=== PATIENT | female | born 1955 | race Caucasian/White ===

== ENCOUNTER → 2017-07-13 | Outpatient (CLI) | payer MEDICARE, OTHER ==
[2014-06-08 17:30] VITALS: BP 128/72
[~2017-07-13] MED LIST: ATEN50TA PO; BUDE10.2 IH; CYCL10TA2 PO; DIAZEPAM10 MG PO; HYDR-2758 PO; HYDR25TA9 PO; IBUP-1007 PO; LEVO100T5 PO; METH10TA2 PO; OMEP20CA9 PO; POTA20TA82 PO; PREG100C PO; SOLI5TAB2 PO; VENL225T PO; VENTOLIN HFA18 GM INH
--- NOTE | 2017-07-14 10:21 | RAD ---
Thyroid ultrasound 07/13/2017 Clinical history: Abnormal TSH. Technique: A real-time ultrasound examination of the thyroid gland was performed. Multiple images were obtained. Findings: The thyroid gland is mildly enlarged. It measures 4.4 x 1.9 x 1.5 cm in longitudinal, transverse, and AP dimensions. The left lobe of the thyroid gland measures 4.7 x 1.5 x 1.6 cm in size. The thyroid gland is slightly heterogeneous. The isthmus measures 2 mm in thickness. A rounded area calcification is seen within the inferior aspect of the left lobe of the thyroid gland. This measures 5 mm in size. No significant solid mass is seen. Impression: Mild thyromegaly. The thyroid gland is heterogeneous. No significant solid mass is noted.
== END | disposition home or self-care (01) ==
LOC: US 16:24
PROVIDERS: ATTEND Family Medicine
DX: E01.0 Iodine-deficiency related diffuse (endemic) goiter (principal); R94.6 Abnormal results of thyroid function studies
CPT/HCPCS: 76536

== ENCOUNTER 2018-06-08 23:19 | Emergency (ER) | payer MEDICARE, OTHER ==
[~2018-06-08] VITALS: Ht 160 cm; Wt 74.8 kg
[2018-06-08 23:45] VITALS: BP 132/75
--- NOTE | 2018-06-09 00:19 | PHYS DOC ---
Past Medical History Past Medical History: Anxiety, Arrhythmia, Depression, High Cholesterol, Hypertension, Hypothyroid Past Surgical History: Cholecystectomy, Hysterectomy, Tubal ligation, Other Additional Past Surgical Histo: BREAST BIOPSY X2, RIGHT ROTATOR CUFF REPAIR Alcohol Use: None Drug Use: None Adult General Chief Complaint Chief Complaint: PAIN CONTROL HPI HPI Patient is a 62-year-old female who presents to the emergency department complaining of generalized pain. She states that she ran out of her methadone approximately one week ago. She says that she has an appointment with a pain doctor on June 18. Patient states that her pain is all over her body and that it is 10/10 in severity. She states that she took 2 Valium and 2 800mg ibuprofen 's within 4-5 hours to help her with the pain to help her sleep and this did not help her symptoms. Review of Systems Review of Systems Constitutional: Endorses fever. Denies chills [] Eyes: Denies change in visual acuity, redness, or eye pain [] HENT: Denies nasal congestion or sore throat [] Respiratory: Denies cough or shortness of breath [] Cardiovascular: Denies chest pain. Endorses palpitations due to her anxiety[] GI: Denies abdominal pain, nausea, vomiting, bloody stools or diarrhea [] : Denies dysuria or hematuria [] Musculoskeletal: Endorses back pain, bilateral chronic shoulder pain [] Neurologic: Endorses headache. Denies focal weakness or sensory changes [] Complete systems were reviewed and found to be within normal limits, except as documented in this note. Current Medications Current Medications Current Medications Medications (Trade) Dose Ordered Sig/[facility] Start Time Stop Time Status Last Admin Dose Admin Dexamethasone (Decadron) 10 mg 1X ONCE 06/09/18 01:30 06/09/18 01:31 Ketorolac Tromethamine (Toradol Im) 30 mg 1X ONCE 06/09/18 01:30 06/09/18 01:31 Allergies Allergies Allergies Coded Allergies Type Severity Reaction Last Updated Verified Sulfa (Sulfonamide Antibiotics) Allergy Intermediate Itching 06/08/14 No venom-honey bee Allergy Intermediate SWELLING 06/08/14 Yes Uncoded Allergies Type Severity Reaction Last Updated Verified ANT VENOM Allergy Intermediate SWELLING 06/08/14 Physical Exam Physical Exam Constitutional: Well developed, well nourished, no acute distress, non-toxic appearance. [] HENT: Normocephalic, atraumatic, bilateral external ears normal, oropharynx moist, no oral exudates, nose normal. [] Eyes: PERRL, EOMI. [] Neck: Normal range of motion, supple, no stridor. [] Cardiovascular:Heart rate regular rhythm, no murmur [] Lungs & Thorax: Bilateral breath sounds clear to auscultation [] Abdomen: Bowel sounds normal, soft, no masses, no pulsatile masses. [] Skin: Warm, dry, no erythema, no rash. [] Neurologic: Alert and oriented X 3, normal motor function, normal sensory function, no focal deficits noted. [] Current Patient Data Vital Signs Vital Signs Date Time Temp Pulse Resp B/P (MAP) Pulse Ox O2 Delivery O2 Flow Rate FiO2 06/08/18 23:45 98.6 90 16 96 Room Air 98.6 EKG EKG [] Radiology/Procedures Radiology/Procedures [] Course & Med Decision Making Course & Med Decision Making Pertinent Labs and Imaging studies reviewed. (See chart for details) Patient is a 62-year-old female who presents to the emergency department complaining of diffuse pain after having ran out of her methadone prescription. Toradol and Decadron were offered to the patient to help alleviate her symptoms. Patient stable for discharge with outpatient follow-up with PCP. Discussed findings and plan with patient who acknowledges understanding and agreement. [] Dragon Disclaimer Dragon Disclaimer This electronic medical record was generated, in whole or in part, using a voice recognition dictation system. Departure Departure Impression: Primary Impression: Chronic pain Disposition: HOME, SELF-CARE Condition: STABLE Referrals: UNKNOWN PCP NAME (PCP) Patient Instructions: Chronic Pain, Chronic Pain Management-Brief Scripts Orphenadrine Citrate (ORPHENADRINE CITRATE) 100 Mg Tablet.er 1 TAB PO BID PRN for MUSCLE SPASMS, #20 TAB 0 Refills Prov: JEWELS LEE DO 06/09/18 Prednisone (PREDNISONE) 20 Mg Tablet 2 TAB PO DAILY, #8 TAB Start on Sunday06/10/18 Prov: JEWELS LEE DO 06/09/18 Problem Qualifiers Primary Impression: Chronic pain Chronic pain type: chronic pain syndrome Qualified Codes: G89.4 - Chronic pain syndrome JEWELS LEE DO Jun 09, 2018 00:19
[2018-06-09] MEDS ORDERED: ORPH100T PO (00:57)
[2018-06-09] MEDS ORDERED: PRED20TA PO (00:57)
[2018-06-09] MEDS ORDERED: KETOROLAC 60 MG/2 ML INJ. IM ONE (01:30)
[2018-06-09] MEDS ORDERED: DEXAMETHASONE 4 MG TABLET PO ONE (01:30)
[2018-06-09] MEDS ORDERED: BUTA1TAB23 PO (20:13)
[2018-06-09] MEDS ORDERED: ONDA4TAB12 PO (20:13)
== END 2018-06-09 01:12 | disposition home or self-care (01) ==
LOC: ER 23:19
DX: G89.4 Chronic pain syndrome (principal); M79.1 Myalgia; I10 Essential (primary) hypertension; E78.00 Pure hypercholesterolemia, unspecified; E03.9 Hypothyroidism, unspecified; Z88.2 Allergy status to sulfonamides; Z91.030 Bee allergy status
CPT/HCPCS: 96372; 99283; J1885; J8540

== ENCOUNTER 2018-06-09 19:43 | Emergency (ER) | payer MEDICARE, OTHER ==
[~2018-06-09] VITALS: Ht 160 cm; Wt 74.4 kg
[~2018-06-09 19:43] MED LIST changes: +ORPH100T PO; +PRED20TA PO
[2018-06-09 19:50] VITALS: BP 158/81
[2018-06-09] MEDS ORDERED: ONDA4TAB12 PO (20:13)
[2018-06-09] MEDS ORDERED: BUTA1TAB23 PO (20:13)
--- NOTE | 2018-06-09 20:13 | PHYS DOC ---
Past Medical History Past Medical History: Anxiety, Arrhythmia, Depression, Fibromyalgia, High Cholesterol, Hypertension, Hypothyroid Additional Past Medical Histor: Chronic Back Pain Past Surgical History: Cholecystectomy, Hysterectomy, Tonsillectomy, Tubal ligation, Other Additional Past Surgical Histo: BREAST BIOPSY X2, RIGHT ROTATOR CUFF REPAIR, BACK SURGERY Alcohol Use: Occasionally Drug Use: None Adult General Chief Complaint Chief Complaint: PAIN CONTROL HPI HPI Patient is a 62 year old [f__sex] who presents with [] Review of Systems Review of Systems Constitutional: Denies fever or chills [] Eyes: Denies change in visual acuity, redness, or eye pain [] HENT: Denies nasal congestion or sore throat [] Respiratory: Denies cough or shortness of breath [] Cardiovascular: No additional information not addressed in HPI [] GI: Denies abdominal pain, nausea, vomiting, bloody stools or diarrhea [] : Denies dysuria or hematuria [] Musculoskeletal: Denies back pain or joint pain [] Integument: Denies rash or skin lesions [] Neurologic: Denies headache, focal weakness or sensory changes [] Endocrine: Denies polyuria or polydipsia [] All other systems were reviewed and found to be within normal limits, except as documented in this note. Allergies Allergies Allergies Coded Allergies Type Severity Reaction Last Updated Verified Sulfa (Sulfonamide Antibiotics) Allergy Intermediate Itching 06/08/14 No venom-honey bee Allergy Intermediate SWELLING 06/08/14 Yes Uncoded Allergies Type Severity Reaction Last Updated Verified ANT VENOM Allergy Intermediate SWELLING 06/08/14 Physical Exam Physical Exam Constitutional: Well developed, well nourished, no acute distress, non-toxic appearance. [] HENT: Normocephalic, atraumatic, bilateral external ears normal, oropharynx moist, no oral exudates, nose normal. [] Eyes: PERRLA, EOMI, conjunctiva normal, no discharge. [] Neck: Normal range of motion, no tenderness, supple, no stridor. [] Cardiovascular:Heart rate regular rhythm, no murmur [] Lungs & Thorax: Bilateral breath sounds clear to auscultation [] Abdomen: Bowel sounds normal, soft, no tenderness, no masses, no pulsatile masses. [] Skin: Warm, dry, no erythema, no rash. [] Back: No tenderness, no CVA tenderness. [] Extremities: No tenderness, no cyanosis, no clubbing, ROM intact, no edema. [] Neurologic: Alert and oriented X 3, normal motor function, normal sensory function, no focal deficits noted. [] Psychologic: Affect normal, judgement normal, mood normal. [] Current Patient Data Vital Signs Vital Signs Date Time Temp Pulse Resp B/P (MAP) Pulse Ox O2 Delivery O2 Flow Rate FiO2 06/09/18 19:50 98.9 97 18 158/81 (106) 97 Room Air 98.9 EKG EKG [] Radiology/Procedures Radiology/Procedures [] Course & Med Decision Making Course & Med Decision Making Pertinent Labs and Imaging studies reviewed. (See chart for details) [] Dragon Disclaimer Dragon Disclaimer This electronic medical record was generated, in whole or in part, using a voice recognition dictation system. Departure Departure Impression: Primary Impression: Chronic pain Additional Impression: Headache Disposition: 01 HOME, SELF-CARE Condition: STABLE Referrals: UNKNOWN PCP NAME (PCP) Patient Instructions: Chronic Pain Management, Headache, FAQs Scripts Ondansetron (ONDANSETRON ODT) 4 Mg Tab.rapdis 1 TAB PO PRN Q6-8HRS PRN for HEADACHE, #16 TAB Prov: JEWELS LEE DO 06/09/18 Butalb/Acetaminophen/Caffeine ([id number] 50-325-40) 1 Each Tablet 1 EACH PO Q6HRS PRN for HEADACHE, #14 TAB Prov: JEWELS LEE DO 06/09/18 Problem Qualifiers Primary Impression: Chronic pain Chronic pain type: chronic pain syndrome Qualified Codes: G89.4 - Chronic pain syndrome Additional Impression: Headache Headache type: unspecified Headache chronicity pattern: unspecified pattern Intractability: intractable Qualified Codes: R51 - Headache JEWELS LEE DO Jun 09, 2018 20:13
[2018-06-09] MEDS ORDERED: BUTALB/APAP/CAFEIN 50/325/40MG TABLET. PO ONE (20:15)
[2018-06-09] MEDS ORDERED: ONDANSETRON ODT 4 MG TAB.RAPDIS. PO ONE (20:15)
[2018-06-09] MEDS ORDERED: ORPHENADRINE CITRATE 60 MG/2 ML VIAL. IM ONE (20:15)
== END 2018-06-09 20:53 | disposition home or self-care (01) ==
LOC: ER 19:43
DX: G89.29 Other chronic pain (principal); R51 Headache; E78.00 Pure hypercholesterolemia, unspecified; I10 Essential (primary) hypertension; E03.9 Hypothyroidism, unspecified; F41.9 Anxiety disorder, unspecified; F32.9 Major depressive disorder, single episode, unspecified; Z88.2 Allergy status to sulfonamides; Z91.030 Bee allergy status
CPT/HCPCS: 96372; 99283; J2360; Q0162

== ENCOUNTER 2018-06-11 22:08 | Emergency (ER) | payer MEDICARE, OTHER ==
[~2018-06-11] VITALS: Ht 160 cm; Wt 71.2 kg
[~2018-06-11 22:08] MED LIST changes: +BUTA1TAB23 PO; +ONDA4TAB12 PO
[2018-06-11 22:22] VITALS: BP 142/77
[2018-06-11] MEDS ORDERED: DICL50TA4 PO (22:43)
[2018-06-11] MEDS ORDERED: CYCL10TA2 PO (22:43)
--- NOTE | 2018-06-11 22:43 | PHYS DOC ---
Past Medical History Past Medical History: No Pertinent History, Anxiety, Depression, High Cholesterol, Hypertension, Hypothyroid Additional Past Medical Histor: Chronic Back Pain Past Surgical History: No Surgical History, Cholecystectomy Additional Past Surgical Histo: BREAST BIOPSY X2, RIGHT ROTATOR CUFF REPAIR, BACK SURGERY Alcohol Use: Rarely Drug Use: None Adult General Chief Complaint Chief Complaint: MEDICATION REFILL HPI HPI Patient is a 62 year old female with history of hypertension, high cholesterol , anxiety, arthritis, who presents today complaining of chronic pain throughout her whole body that she has been following up with her own PCP. She states her own PCP stopped giving her methadone and requested her to follow-up with the pain clinic. She states she is planning to follow-up with the pain clinic but in the meantime she is not able to sleep and has continued to have pain. Patient denies any known injury. Review of Systems Review of Systems Constitutional: Denies fever or chills [] Musculoskeletal: Reports chronic generalized pain throughout her body Integument: Denies rash or skin lesions [] Neurologic: Denies headache, focal weakness or sensory changes [] All other systems were reviewed and found to be within normal limits, except as documented in this note. Allergies Allergies Allergies Coded Allergies Type Severity Reaction Last Updated Verified Sulfa (Sulfonamide Antibiotics) Allergy Intermediate Itching 06/08/14 No venom-honey bee Allergy Intermediate SWELLING 06/08/14 Yes Uncoded Allergies Type Severity Reaction Last Updated Verified ANT VENOM Allergy Intermediate SWELLING 06/08/14 Physical Exam Physical Exam Constitutional: Well developed, well nourished, no acute distress, non-toxic appearance. [] Skin: Warm, dry, no erythema, no rash. [] Back: No tenderness, no CVA tenderness. [] Extremities: No tenderness, no cyanosis, no clubbing, ROM intact, no edema. [] Neurologic: Alert and oriented X 3, normal motor function, normal sensory function, no focal deficits noted. [] Psychologic: Affect normal, judgement normal, mood normal. [] Current Patient Data Vital Signs Vital Signs Date Time Temp Pulse Resp B/P (MAP) Pulse Ox O2 Delivery O2 Flow Rate FiO2 06/11/18 22:22 98.5 79 16 142/77 (98) 97 Room Air 98.5 EKG EKG [] Radiology/Procedures Radiology/Procedures [] Course & Med Decision Making Course & Med Decision Making Pertinent Labs and Imaging studies reviewed. (See chart for details) This is a 62-year-old female patient presenting to the ED today complaining of chronic pain is requesting refill for methadone which she states her own primary care doctor has stopped giving her. She was referred to a pain clinic. Informed patient she has to follow-up with the pain clinic. I offered her 1 oxycodone and Valium in the ED. She was discharged with prescription for cyclobenzaprine and diclofenac. Dragon Disclaimer Dragon Disclaimer This electronic medical record was generated, in whole or in part, using a voice recognition dictation system. Departure Departure Impression: Primary Impression: Chronic pain Disposition: HOME, SELF-CARE Condition: STABLE Referrals: UNKNOWN PCP NAME (PCP) LEN TYSON MD Follow-up in one week Patient Instructions: Chronic Pain Additional Instructions: You were evaluated in the emergency room for chronic pain. Follow-up with the pain clinic or your own primary care doctor as soon as possible. Scripts Diclofenac Sodium (DICLOFENAC SODIUM) 50 Mg Tablet.dr 1 TAB PO BID, #20 TAB 0 Refills Prov: SILVIA CONTI APRN 06/11/18 Cyclobenzaprine Hcl (CYCLOBENZAPRINE HCL) 10 Mg Tablet 1 TAB PO TID, #30 TAB Prov: SILVIA CONTI APRN 06/11/18 Problem Qualifiers Primary Impression: Chronic pain Chronic pain type: other chronic pain Qualified Codes: G89.29 - Other chronic pain SILVIA CONTI APRN Jun 11, 2018 22:43
[2018-06-11] MEDS: diazePAM 5 MG TABLET PO ONE (22:56)
[2018-06-11] MEDS: oxyCODONE/APAP 5/325 1 TAB TABLET PO ONE (22:56)
== END 2018-06-11 23:05 | disposition home or self-care (01) ==
LOC: ER 22:08
DX: G89.29 Other chronic pain (principal); I10 Essential (primary) hypertension; E78.00 Pure hypercholesterolemia, unspecified; F41.9 Anxiety disorder, unspecified; M19.90 Unspecified osteoarthritis, unspecified site; F32.9 Major depressive disorder, single episode, unspecified; E03.9 Hypothyroidism, unspecified; Z90.49 Acquired absence of other specified parts of digestive tract; Z88.2 Allergy status to sulfonamides; Z91.030 Bee allergy status
CPT/HCPCS: 99283

== ENCOUNTER → 2018-07-29 | Outpatient (CLI) | payer MEDICARE, OTHER ==
[~2018-07-29] MED LIST changes: +ASPI-630 PO; +BUPIVACAINE MPF 0.25% 10 ML VIAL. ONE; +BUPIVACAINE MPF 0.25% 30 ML VIAL. ONE; +CHOL500016 PO; +DICL50TA4 PO; +EZET10TA18 PO; +FLUO20CA16 PO; +FLUT9.9S NS; +IBUP-1060 PO; +LEVO112T4 PO; +POLY119P3 PO; +SIMV20TA3 PO; +TIOT18CA IH; +VILA40TA PO; +[UNRECOGNIZED DRUG - CODE]; +flaxseed; +methylPREDNISolone ACETATE 40 MG/ML VIAL. ONE
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
== END | disposition home or self-care (01) ==
LOC: PNCL 13:08
PROVIDERS: ATTEND Anesthesiology
DX: M79.18 Myalgia, other site (principal); M54.5 Low back pain; I10 Essential (primary) hypertension; M19.90 Unspecified osteoarthritis, unspecified site; E78.5 Hyperlipidemia, unspecified; K21.9 Gastro-esophageal reflux disease without esophagitis; F32.9 Major depressive disorder, single episode, unspecified; F41.9 Anxiety disorder, unspecified; Z98.890 Other specified postprocedural states; Z90.49 Acquired absence of other specified parts of digestive tract; Z98.51 Tubal ligation status; Z79.82 Long term (current) use of aspirin; Z79.1 Long term (current) use of non-steroidal anti-inflammatories (NSAID); Z79.899 Other long term (current) drug therapy
CPT/HCPCS: 20553; J1030; J3490

== ENCOUNTER → 2018-08-01 | Outpatient (CLI) | payer MEDICARE, OTHER ==
[~2018-08-01] MED LIST changes: -BUPIVACAINE MPF 0.25% 10 ML VIAL. ONE; -BUPIVACAINE MPF 0.25% 30 ML VIAL. ONE; -methylPREDNISolone ACETATE 40 MG/ML VIAL. ONE
--- NOTE | 2018-08-01 17:25 | KCIC ---
MRI Lumbar Spine without contrast History: Lumbar radiculopathy, chronic spine pain, bilateral lower extremity pain Technique: Multiplanar, multi sequential noncontrast MR imaging was performed of the lumbar spine. Contrast: None Comparison: April 07, 2014 Findings: There is again transitional anatomy of the lumbar spine. Most inferior fully formed although somewhat rudimentary intervertebral disc space is considered L5-S1 for this report. There is negligible anterior spondylolisthesis at what is considered L5-S1. There is mild disc desiccation L2-3 through L4-5. Conus terminates at L1-L2. There is no significant marrow edema. There is mild levoscoliosis centered about L2-3. L3-L4: Spinal canal and neural foramina are adequate. There is minimal facet degenerative change. L4-L5: There is mild facet degenerative change. Neural foramina and spinal canal are adequate. L5-S1: There is [id number] facet degenerative change. Neural foramina and spinal canal are adequate. Impression: 1. There is again transitional anatomy of the lumbar spine, most inferior fully formed although somewhat rudimentary intervertebral disc space considered L5-S1 for this report. There is negligible anterior spondylolisthesis at what is considered L5-S1. There is no new significant lumbar spinal stenosis or neural foramina compromise. There is mild lumbar levoscoliosis. Electronically signed by: Harpal Torres MD (08/01/2018 5:22 PM) [id number]
== END | disposition home or self-care (01) ==
LOC: KCIC MRI 15:16
PROVIDERS: ATTEND Anesthesiology
DX: M51.16 Intervertebral disc disorders with radiculopathy, lumbar region (principal); G89.29 Other chronic pain; F41.9 Anxiety disorder, unspecified; F32.9 Major depressive disorder, single episode, unspecified; M19.90 Unspecified osteoarthritis, unspecified site; E03.9 Hypothyroidism, unspecified; E78.00 Pure hypercholesterolemia, unspecified; I10 Essential (primary) hypertension; K21.9 Gastro-esophageal reflux disease without esophagitis; E78.5 Hyperlipidemia, unspecified; Z79.82 Long term (current) use of aspirin; Z98.890 Other specified postprocedural states; Z98.51 Tubal ligation status; Z79.899 Other long term (current) drug therapy; Z90.49 Acquired absence of other specified parts of digestive tract; Z79.1 Long term (current) use of non-steroidal anti-inflammatories (NSAID); Z88.2 Allergy status to sulfonamides; Z91.030 Bee allergy status
CPT/HCPCS: 72148

== ENCOUNTER → 2018-09-11 | Outpatient (CLI) | payer MEDICARE, OTHER ==
--- NOTE | 2018-09-11 19:11 | RAD ---
MR#: [id number] Date of Study: 09/11/2018 Ordering Physician: AALIYAH IRVERA, Referring Physician: AALIYAH RIVERA, Tech: Freda Haddad RDMS, RVT APPROVED REPORT Patient Location: OUT-PATIENT Laterality:Bilateral Indications VASCULAR ABNORMALITIES OF CONJUCTIVA BILAT Risk Factors Hyperlipidemia Doppler Spectral Velocity Analysis Right Left pCCA 98/30 cm/spCCA 95/32 cm/s mCCA 93/28 cm/smCCA 79/30 cm/s dCCA 97/30 cm/sdCCA 76/30 cm/s ECA 86/20 cm/sECA 68/9 cm/s pICA 58/22 cm/spICA 92/36 cm/s Raymon 79/32 cm/smICA 76/27 cm/s dICA 60/23 cm/sdICA 51/20 cm/s Vert. 36/13 cm/sVert. 40/17 cm/s Subcl. 80/2 cm/sSubcl. 79/23 cm/s ICA/CCA 0.81ICA/CCA 0.97 Findings Grayscale images of the bilateral common carotid, internal and external carotid vessels reveals mild intimal hyperplasia with minimal atherosclerotic plaque. Spectral waveforms and color Doppler throughout the carotid vasculature does not reveal any significa nt stenosis. By Doppler criteria overall 0 to less than 50% stenosis. The vertebral velocities are antegrade. No significant subclavian stenosis is noted. Normal ICA to CCA ratios are noted. Critical Notification Critical Value: No <Conclusion> No significant carotid vascular disease noted bilaterally. Signed by : Arnoldo Sarabia, Electronically Approved : 09/11/2018 19:10:15
--- NOTE | 2018-09-11 19:26 | CARD ---
MR#: [id number] Date of Study: 09/11/2018 Ordering Physician: AALIYAH RIVERA, Referring Physician: AALIYAH RIVERA, Tech: Radha Friend APPROVED REPORT EXAM: Two-dimensional and M-mode echocardiogram with Doppler and color Doppler. Other Information Quality : AverageHR: 97bpm INDICATION Murmur RISK FACTORS Hypertension Hyperlipidemia Previous smoker 2D DIMENSIONS RVDd1.6 (2.9-3.5cm)Left Atrium(2D)2.4 (1.6-4.0cm) IVSd1.3 (0.7-1.1cm)Aortic Root(2D)2.7 (2.0-3.7cm) LVDd3.8 (3.9-5.9cm)LVOT Diameter2.1 (1.8-2.4cm) PWd1.1 (0.7-1.1cm)LVDs2.3 (2.5-4.0cm) FS (%) 40.7 %SV45.9 ml LVEF(%)72.2 (>50%) Aortic Valve AoV Peak Otilio.157.1cm/sAoV VTI28.9cm AO Peak GR.9.9mmHgLVOT Peak Otilio.116.4cm/s LVOT VTI 22.80cmAO Mean GR.6mmHg AHMET (VMAX)2.96df7MYQ (VTI)2.80cm2 Mitral Valve MV E Gbwiynii83.6cm/sMV DECEL KCJM855hz MV A Mtiqagxi95.4cm/sMV IDH23fz E/A Ratio0.7MVA (PHT)2.73cm2 TDI E/Lateral E'9.0E/Medial E'6.5 Pulmonary Valve PV Peak Vhpudsgy828.9cm/sPV Peak Grad.5mmHg Tricuspid Valve TR P. Nifudubs3xi/sRAP PZVNZQGB2oqDz TR Peak Gr.93nkAwYIVW68gaVm Pulmonary Vein S1 Gyoxxlsn94.4cm/sD2 Nbcexlrx36.5cm/s PVa sxdzzjmq147jrpg LEFT VENTRICLE The left ventricle is normal size. There is mild concentric left ventricular hypertrophy. The left ve ntricular systolic function is normal and the ejection fraction is within normal range. The Ejection Fraction is 60-65%. There is normal LV segmental wall motion. Transmitral Doppler flow pattern is Gra de I-abnormal relaxation pattern. RIGHT VENTRICLE The right ventricle is normal size. There is normal right ventricular wall thickness. The right ventr icular systolic function is normal. ATRIA The left atrium size is normal. The right atrium size is normal. The interatrial septum is intact wit h no evidence for an atrial septal defect or patent foramen ovale as noted on 2-D or Doppler imaging. Mild lipomatous hypertrophy of the interatrial septum. AORTIC VALVE The aortic valve is normal in structure and function. Doppler and Color Flow revealed trace aortic re gurgitation. There is no significant aortic valvular stenosis. MITRAL VALVE The mitral valve is normal in structure and function. There is no mitral valve stenosis. Doppler and Color-flow revealed trace mitral regurgitation. TRICUSPID VALVE The tricuspid valve is not well visualized. Doppler and Color Flow revealed trace tricuspid regurgita tion. There is no tricuspid valve stenosis. PULMONIC VALVE The pulmonic valve is not well visualized. Doppler and Color Flow revealed trace pulmonic valvular re gurgitation. There is no pulmonic valvular stenosis. GREAT VESSELS The aortic root is normal in size. The IVC is normal in size and collapses >50% with inspiration. PERICARDIAL EFFUSION There is no evidence of significant pericardial effusion. Critical Notification Critical Value: No <Conclusion> The left ventricular systolic function is normal and the ejection fraction is within normal range. Th e Ejection Fraction is 60-65%. There is normal LV segmental wall motion. Signed by : Arnoldo Sarabia, Electronically Approved : 09/11/2018 19:25:43
[2018-09-12] MEDS: ZOLPIDEM 5 MG TABLET. PO ONE (00:21)
== END | disposition home or self-care (01) ==
LOC: ECHO 13:52
PROVIDERS: ATTEND Internal Medicine Cardiovascular Disease
DX: G47.33 Obstructive sleep apnea (adult) (pediatric) (principal); H11 Other disorders of conjunctiva; I65.23 Occlusion and stenosis of bilateral carotid arteries; I77.3 Arterial fibromuscular dysplasia; I51.7 Cardiomegaly; E78.5 Hyperlipidemia, unspecified; Z87.891 Personal history of nicotine dependence
CPT/HCPCS: 93306; 93880; 95810

== ENCOUNTER → 2018-10-03 | Outpatient (CLI) | payer MEDICARE, OTHER ==
[~2018-10-03] MED LIST changes: +HYDR-2145 PO; -HYDR-2758 PO; +HYDR-2761 PO; -HYDR25TA9 PO
--- NOTE | 2018-10-07 10:57 | SLEEP ---
DATE OF STUDY: 10/03/2018 Referred by MEHRDAD Castano The patient is 63-year-old who weighs 169 pounds with a BMI of 29. The patient had a previous in-lab sleep study at [facility] in 08/2018 and there was no evidence of any clinically significant sleep disorder breathing. The patient's AHI was only 3 per hour. The patient had sleep onset and sleep maintenance insomnia. The patient is on multiple sedative medications including hydrocodone, Lyrica, Flexeril, Valium, and methadone. Another home sleep study was performed to rule out SALIMA. Total recording time was 921 minutes. During the night study, the patient had no central apneas, 10 obstructive apneas, 46 mixed apneas and 10 hypopneas. The patient's apnea hypopnea index was 4.3 per hour. No supine sleep was recorded. Nocturnal oximetry study revealed an average oxygen saturation of 92% with the lowest of 73%, which could be an artifact. Only 0.5 minutes were spent in oxygen saturation of less than 90%. Mean heart rate was 69 beats per minute. IMPRESSION: 1. No clinically significant sleep disorder breathing. The patient's AHI for the entire night was 4.3 per hour. 2. No clinically significant nocturnal hypoxia. RECOMMENDATIONS: 1. The patient does not meet the criteria for CPAP initiation. 2. The patient's subjective hypersomnia could be probably related to the side effect of medications. If clinically possible, the doses and frequencies should be reduced.(Hydrocodone,Flexeril,Lyrica,Valium,Methadone). 3. Caution regarding driving until hypersomnia is resolved. 4. Weight loss is advised. ELISABET KENNY MD DR: CHANNING/yazan JOB#: [id number] / [id number] [facility] NUZHAT STEWARD MTDSeth
== END | disposition home or self-care (01) ==
LOC: RT 09:04
PROVIDERS: ATTEND Physician Assistant Surgical
DX: G47.33 Obstructive sleep apnea (adult) (pediatric) (principal)
CPT/HCPCS: G0399

== ENCOUNTER 2019-02-16 00:15 | Inpatient (IN) | payer MEDICARE, OTHER ==
[~2019-02-16] VITALS: Ht 165.1 cm; Wt 71.2 kg
[~2019-02-16 00:15] MED LIST changes: +OMEP20CA10 PO; -OMEP20CA9 PO
[2019-02-16 00:47] LABS: BASO % 0 % (0-3); EOS % 0 % (0-3); HEMATOCRIT 42.4 % (36.0-47.0); LYMPH # 1.3 x10^3/uL (1.0-4.8); LYMPH % 12 % (24-48); MEAN CORPUSCULAR HEMOGLOBIN 30 pg (25-35); MEAN CORPUSCULAR HGB CONC 33 g/dL (31-37); MEAN CORPUSCULAR VOLUME 91 fL (79-100); MONO # 0.5 x10^3/uL (0.0-1.1); MONO % 4 % (0-9); NEUT # 9.1 x10^3uL (1.8-7.7); NEUT % 83 % (31-73); PLATELET COUNT 211 x10^3/uL (140-400); RED BLOOD COUNT 4.66 x10^6/uL (3.50-5.40); RED CELL DISTRIBUTION WIDTH 13.2 % (11.5-14.5)
[2019-02-16 00:56] LABS: CALCIUM 9.2 mg/dL (8.5-10.1); CREATININE 1.5 mg/dL (0.6-1.0); GFR 35.2; POTASSIUM 3.9 mmol/L (3.5-5.1)
[2019-02-16 01:03] LABS: ALBUMIN 3.9 g/dL (3.4-5.0); ALBUMIN/GLOBULIN RATIO 0.9 (1.0-1.7); TOTAL BILIRUBIN 0.5 mg/dL (0.2-1.0); TOTAL PROTEIN 8.1 g/dL (6.4-8.2)
--- NOTE | 2019-02-16 01:09 | RAD ---
PQRS Compliance statement: One or more of the following individualized dose reduction techniques were utilized for this examination: 1. Automated exposure control. 2. Adjustment of the mA and/or kV according to patient size. 3. Use of iterative reconstruction technique. Indication:syncope TECHNIQUE: CT head without IV contrast COMPARISON:None FINDINGS: No pathologic extra-axial or intra-axial fluid collection. The ventricles and basal cisterns are within normal limits. Multifocal areas of low-attenuation are seen in the subcortical white matter. No focal loss of gaona-white differentiation. Orbits within normal limits. No suspicious calvarial lesion. Visualized paranasal sinuses and mastoid air cells are clear. IMPRESSION: 1. No acute intracranial bleed. 2. Multifocal areas of low-attenuation in the subcortical white matter may be secondary to chronic microvascular ischemic changes. If concern for acute ischemic stroke is high, please consider MRI brain. Electronically signed by: Miguel Gutierrez DO (02/16/2019 1:06 AM) [facility]
--- NOTE | 2019-02-16 01:41 | RAD ---
PROCEDURE: CHEST AP ONLY CLINICAL INDICATION: SHORT OF AIR. COMPARISON: None FINDINGS: No pneumothorax identified. Cardiac and mediastinal contours unremarkable. No pulmonary consolidation or acute airspace disease. No acute osseous abnormalities identified. IMPRESSION: No pulmonary consolidation or acute airspace disease. Electronically signed by: Miguel Gutierrez DO (02/16/2019 1:38 AM) [facility]
[2019-02-16] MEDS ORDERED: MORPHINE SULFATE 4 MG/ML VIAL. IV ONE (04:00)
[2019-02-16] MEDS ORDERED: ONDANSETRON PF 4 MG/2 ML VIAL. IV ONE ×2 (04:00→05:30)
[2019-02-16] MEDS ORDERED: IV NORMAL SALINE 1000ML BAG 1,000 ML IV ONE (04:00)
--- NOTE | 2019-02-16 04:26 | RAD ---
PQRS Compliance statement: One or more of the following individualized dose reduction techniques were utilized for this examination: 1. Automated exposure control. 2. Adjustment of the mA and/or kV according to patient size. 3. Use of iterative reconstruction technique. Indication:TRAUMA, FELL. TECHNIQUE: CT of the cervical spine without IV contrast with multiplanar reformats. COMPARISON:None FINDINGS: Cervical spine is in normal anatomic alignment. Atlantoaxial joint interval is preserved. No compression deformity. Facet joints are in normal anatomic alignment with multilevel facet arthropathy. No acute fractures. Noncontrast appearance of the visualized neck soft tissue is within normal limits. Clear lung apices. IMPRESSION: No acute fractures. Electronically signed by: Miguel Gutierrez DO (02/16/2019 4:24 AM) [facility]
--- NOTE | 2019-02-16 04:42 | RAD ---
Indication:TRAUMA, FELL. TECHNIQUE: 3 views of the right knee COMPARISON:None FINDINGS: No acute fracture or dislocation. Mild tricompartmental osteoarthritis. No suprapatellar effusion. IMPRESSION: As above. Electronically signed by: Miguel Gutierrez DO (02/16/2019 4:39 AM) [facility]
--- NOTE | 2019-02-16 04:44 | RAD ---
Indication: Trauma. Fall TECHNIQUE: 3 views of the left wrist COMPARISON: None FINDINGS/ impression: [facility] joint osteoarthritis. No acute fracture or disc herniation. Mild radiocarpal joint osteoarthritis. Electronically signed by: Miguel Gutierrez DO (02/16/2019 4:41 AM) [id number]
--- NOTE | 2019-02-16 05:43 | PHYS DOC ---
Past Medical History Past Medical History: No Pertinent History, Anxiety, Depression, High Cholesterol, Hypertension, Hypothyroid Additional Past Medical Histor: Chronic Back Pain Past Surgical History: No Surgical History, Cholecystectomy Additional Past Surgical Histo: BREAST BIOPSY X2, RIGHT ROTATOR CUFF REPAIR, BACK SURGERY Alcohol Use: Rarely Drug Use: None Adult General Chief Complaint Chief Complaint: SYNCOPE HPI HPI Patient is a 63 year old female with history of recurrent syncope who presents with syncope and collapse at home. Patient was sitting in a bar stool and fell hitting her head, left wrist and right knee. Patient also reports neck pain. Denies palpitations, chest pain shortness of breath. Patient was hypotensive per EMS with systolic blood pressure in 60s. IV fluids given. Patient has been evaluated by cardiology and has external event monitor in place. [] Review of Systems Review of Systems ROS as per HPI All other systems were reviewed and found to be within normal limits, except as documented in this note. Current Medications Current Medications Current Medications Medications (Trade) Dose Ordered Sig/Blanquita Start Time Stop Time Status Last Admin Dose Admin Morphine Sulfate (Morphine Sulfate) 4 mg 1X ONCE 02/16/19 04:00 02/16/19 04:01 DC 02/16/19 04:00 4 MG Ondansetron HCl (Zofran) 4 mg PRN Q8HRS PRN 02/16/19 05:45 02/17/19 05:44 Sodium Chloride 1,000 ml @ 125 mls/hr Q8H 02/16/19 06:00 02/17/19 05:59 Allergies Allergies Allergies Coded Allergies Type Severity Reaction Last Updated Verified venom-wasp protein Allergy Severe ANT VENOM 09/12/18 Yes Sulfa (Sulfonamide Antibiotics) Allergy Intermediate Itching 06/08/14 No venom-honey bee Allergy Intermediate SWELLING 06/08/14 Yes Physical Exam Physical Exam Constitutional: Well developed, well nourished, no acute distress, non-toxic appearance. [] HENT: Normocephalic, forehead contusion, bilateral external ears normal, oropharynx moist, no oral exudates, nose normal. [] Eyes: PERRLA, EOMI, conjunctiva normal, no discharge. [] Neck: Normal range of motion, no midline tenderness. [] Cardiovascular:Heart rate regular rhythm. [] Lungs & Thorax: Bilateral breath sounds clear to auscultation [] Abdomen: Bowel sounds normal, soft, no tenderness. [] Skin: Warm, dry, no erythema, no rash. [] Back: No tenderness, no CVA tenderness. [] Extremities: Right knee pain, left swelling. [] Neurologic: Alert and oriented X 3, normal motor function, normal sensory function, no focal deficits noted. [] Psychologic: Affect normal, judgement normal, mood normal. [] Current Patient Data Vital Signs Vital Signs Date Time Temp Pulse Resp B/P (MAP) Pulse Ox O2 Delivery O2 Flow Rate FiO2 02/16/19 04:41 76 23 90/53 (65) 93 Room Air 02/16/19 00:27 98.1 98.1 Lab Values Laboratory Tests Test 02/16/19 00:35 White Blood Count 11.0 x10^3/uL (4.0-11.0) Red Blood Count 4.66 x10^6/uL (3.50-5.40) Hemoglobin 14.0 g/dL (12.0-15.5) Hematocrit 42.4 % (36.0-47.0) Mean Corpuscular Volume 91 fL (79-100) Mean Corpuscular Hemoglobin 30 pg (25-35) Mean Corpuscular Hemoglobin Concent 33 g/dL (31-37) Red Cell Distribution Width 13.2 % (11.5-14.5) Platelet Count 211 x10^3/uL (140-400) Neutrophils (%) (Auto) 83 % (31-73) H Lymphocytes (%) (Auto) 12 % (24-48) L Monocytes (%) (Auto) 4 % (0-9) Eosinophils (%) (Auto) 0 % (0-3) Basophils (%) (Auto) 0 % (0-3) Neutrophils # (Auto) 9.1 x10^3uL (1.8-7.7) H Lymphocytes # (Auto) 1.3 x10^3/uL (1.0-4.8) Monocytes # (Auto) 0.5 x10^3/uL (0.0-1.1) Eosinophils # (Auto) 0.0 x10^3/uL (0.0-0.7) Basophils # (Auto) 0.0 x10^3/uL (0.0-0.2) Sodium Level 141 mmol/L (136-145) Potassium Level 3.9 mmol/L (3.5-5.1) Chloride Level 102 mmol/L (98-107) Carbon Dioxide Level 25 mmol/L (21-32) Anion Gap 14 (6-14) Blood Urea Nitrogen 14 mg/dL (7-20) Creatinine 1.5 mg/dL (0.6-1.0) H Estimated GFR (Cockcroft-Gault) 35.2 BUN/Creatinine Ratio 9 (6-20) Glucose Level 134 mg/dL (70-99) H Calcium Level 9.2 mg/dL (8.5-10.1) Total Bilirubin 0.5 mg/dL (0.2-1.0) Aspartate Amino Transferase (AST) 50 U/L (15-37) H Alanine Aminotransferase (ALT) 59 U/L (14-59) Alkaline Phosphatase 125 U/L (46-116) H Troponin I Quantitative < 0.017 ng/mL (0.000-0.055) UQ-Ngh-F-Type Natriuretic Peptide 97 pg/mL (0-124) Total Protein 8.1 g/dL (6.4-8.2) Albumin 3.9 g/dL (3.4-5.0) Albumin/Globulin Ratio 0.9 (1.0-1.7) L Laboratory Tests 02/16/19 00:35 Laboratory Tests 02/16/19 00:35 EKG EKG [EKG: Normal sinus rhythm, rate 68, no acute ST-T wave changes.] Radiology/Procedures Radiology/Procedures [CT head, Ct cervical spin, Left wrist, R knee: No acute findings.] Course & Med Decision Making Course & Med Decision Making Pertinent Labs and Imaging studies reviewed. (See chart for details) [IV fluids given for blood pressure support. CT head imaging negative. Will admit with anticipated cardiology consult. ] Dragon Disclaimer Dragon Disclaimer This electronic medical record was generated, in whole or in part, using a voice recognition dictation system. Departure Departure Impression: Primary Impression: Syncope and collapse Additional Impression: Hypotension Disposition: ADMITTED INPATIENT Admitting Physician: Lupe Ardon Condition: IMPROVED Referrals: NATALEE BROWN MD (PCP) Problem Qualifiers AZEEM DIGGS DO Feb 16, 2019 05:43
[2019-02-16] MEDS ORDERED: ONDANSETRON PF 4 MG/2 ML VIAL. IV PRN (05:45)
[2019-02-16 07:50] VITALS: BP 84/44
--- NOTE | 2019-02-16 08:46 | EKG ---
[facility] [address] [place] [address] Test Date: 2019-02-16 Test Time: 00:23:04 Pat Name: TOMAS MONTENEGRO Department: Room: 205 1 Gender: F Master Glazier: : [id number] Requested By: AZEEM DIGGS Order Number: [id number] Reading MD: Lucas Palacios Measurements Intervals [place] Rate: 68 P: 56 MD: 194 QRS: -11 QRSD: 100 T: 62 QT: 426 QTc: 458 Interpretive Statements SINUS RHYTHM LEFTWARD AXIS NON SPECIFIC T ABNORMALITY BORDERLINE ECG No previous ECG available for comparison Electronically Signed On 02-19-2019 17:32:36 CDT by Lucas Palacios
[2019-02-16] MEDS: IV NORMAL SALINE 1000ML BAG 1,000 ML IV SCH ×2 (10:10→14:00)
[2019-02-16] MEDS ORDERED: PREG75CA PO (10:26)
[2019-02-16] MEDS ORDERED: FLUO20CA16 PO (10:26)
[2019-02-16] MEDS ORDERED: LEVO100T5 PO (10:26)
[2019-02-16] MEDS ORDERED: NON FORMULARY ITEM (Albuterol Sulfate (Ventolin Hfa Inhaler) 2 PUFF) INH PRN (10:30)
[2019-02-16] MEDS ORDERED: ACETAMINOPHEN 500 MG TABLET PO PRN (10:30)
--- NOTE | 2019-02-16 10:35 | PDOC ---
PROGRESS NOTES Subjective Subjective Patient without complaint. Sore on left side of head where she fell. Denies lightheadedness. Objective Objective Vital Signs Date Time Temp Pulse Resp B/P (MAP) Pulse Ox O2 Delivery O2 Flow Rate FiO2 02/16/19 07:50 98.3 73 20 84/44 (57) 97 Room Air 98.3 Physical Exam Abdomen: Normal bowel sounds, Soft, No tenderness Heart: Regular rate Extremities: No edema General: Alert, Oriented X3, No acute distress Lungs: Clear to auscultation Psych/Mental Status: Mental status NL, Mood NL Assessment Assessment Problems Medical Problems: (1) Syncope and collapse Status: Acute Plan Plan of Care 1. Syncope - patient with history of this, no cause found yet. Has event recorder from Cardiology presently and follow up with Dr Dowell next month. Lab and xrays unremarkable, tele with sinus rhythm. Home today if OK with Dr Powers. 2. hypotension - patient has hx of HTN and takes Losartan 100mg daily. BP was 90's systolic at recent OV with Dr Ratliff also. Patient advised to stop taking Losartan, check BP at home and follow up with Dr Ratliff for further treatment. 3. mood disorder - patient takes several medications for this and appears stable on these. 4. hypothyroidism - continue present dose of Levothyroxine. 5. COPD - stable, patient reports she uses Albuterol prn and rarely takes the Symbicort or Spiriva. Quit smoking years ago. 6. narcolepsy - continue Provigil. Comment Review of Relevant I have reviewed the following items serenity (where applicable) has been applied. Labs Laboratory Tests Test 02/16/19 00:35 White Blood Count 11.0 x10^3/uL (4.0-11.0) Red Blood Count 4.66 x10^6/uL (3.50-5.40) Hemoglobin 14.0 g/dL (12.0-15.5) Hematocrit 42.4 % (36.0-47.0) Mean Corpuscular Volume 91 fL (79-100) Mean Corpuscular Hemoglobin 30 pg (25-35) Mean Corpuscular Hemoglobin Concent 33 g/dL (31-37) Red Cell Distribution Width 13.2 % (11.5-14.5) Platelet Count 211 x10^3/uL (140-400) Neutrophils (%) (Auto) 83 % (31-73) Lymphocytes (%) (Auto) 12 % (24-48) Monocytes (%) (Auto) 4 % (0-9) Eosinophils (%) (Auto) 0 % (0-3) Basophils (%) (Auto) 0 % (0-3) Neutrophils # (Auto) 9.1 x10^3uL (1.8-7.7) Lymphocytes # (Auto) 1.3 x10^3/uL (1.0-4.8) Monocytes # (Auto) 0.5 x10^3/uL (0.0-1.1) Eosinophils # (Auto) 0.0 x10^3/uL (0.0-0.7) Basophils # (Auto) 0.0 x10^3/uL (0.0-0.2) Sodium Level 141 mmol/L (136-145) Potassium Level 3.9 mmol/L (3.5-5.1) Chloride Level 102 mmol/L (98-107) Carbon Dioxide Level 25 mmol/L (21-32) Anion Gap 14 (6-14) Blood Urea Nitrogen 14 mg/dL (7-20) Creatinine 1.5 mg/dL (0.6-1.0) Estimated GFR (Cockcroft-Gault) 35.2 BUN/Creatinine Ratio 9 (6-20) Glucose Level 134 mg/dL (70-99) Calcium Level 9.2 mg/dL (8.5-10.1) Total Bilirubin 0.5 mg/dL (0.2-1.0) Aspartate Amino Transf (AST/SGOT) 50 U/L (15-37) Alanine Aminotransferase (ALT/SGPT) 59 U/L (14-59) Alkaline Phosphatase 125 U/L (46-116) Troponin I Quantitative < 0.017 ng/mL (0.000-0.055) DZ-Wyq-K-Type Natriuretic Peptide 97 pg/mL (0-124) Total Protein 8.1 g/dL (6.4-8.2) Albumin 3.9 g/dL (3.4-5.0) Albumin/Globulin Ratio 0.9 (1.0-1.7) Laboratory Tests Test 02/16/19 00:35 White Blood Count 11.0 x10^3/uL (4.0-11.0) Red Blood Count 4.66 x10^6/uL (3.50-5.40) Hemoglobin 14.0 g/dL (12.0-15.5) Hematocrit 42.4 % (36.0-47.0) Mean Corpuscular Volume 91 fL (79-100) Mean Corpuscular Hemoglobin 30 pg (25-35) Mean Corpuscular Hemoglobin Concent 33 g/dL (31-37) Red Cell Distribution Width 13.2 % (11.5-14.5) Platelet Count 211 x10^3/uL (140-400) Neutrophils (%) (Auto) 83 % (31-73) Lymphocytes (%) (Auto) 12 % (24-48) Monocytes (%) (Auto) 4 % (0-9) Eosinophils (%) (Auto) 0 % (0-3) Basophils (%) (Auto) 0 % (0-3) Neutrophils # (Auto) 9.1 x10^3uL (1.8-7.7) Lymphocytes # (Auto) 1.3 x10^3/uL (1.0-4.8) Monocytes # (Auto) 0.5 x10^3/uL (0.0-1.1) Eosinophils # (Auto) 0.0 x10^3/uL (0.0-0.7) Basophils # (Auto) 0.0 x10^3/uL (0.0-0.2) Sodium Level 141 mmol/L (136-145) Potassium Level 3.9 mmol/L (3.5-5.1) Chloride Level 102 mmol/L (98-107) Carbon Dioxide Level 25 mmol/L (21-32) Anion Gap 14 (6-14) Blood Urea Nitrogen 14 mg/dL (7-20) Creatinine 1.5 mg/dL (0.6-1.0) Estimated GFR (Cockcroft-Gault) 35.2 BUN/Creatinine Ratio 9 (6-20) Glucose Level 134 mg/dL (70-99) Calcium Level 9.2 mg/dL (8.5-10.1) Total Bilirubin 0.5 mg/dL (0.2-1.0) Aspartate Amino Transf (AST/SGOT) 50 U/L (15-37) Alanine Aminotransferase (ALT/SGPT) 59 U/L (14-59) Alkaline Phosphatase 125 U/L (46-116) Troponin I Quantitative < 0.017 ng/mL (0.000-0.055) LT-Ouq-I-Type Natriuretic Peptide 97 pg/mL (0-124) Total Protein 8.1 g/dL (6.4-8.2) Albumin 3.9 g/dL (3.4-5.0) Albumin/Globulin Ratio 0.9 (1.0-1.7) Medications Current Medications Sodium Chloride 1,000 ml @ 1,000 mls/hr 1X ONCE IV Last administered on 02/16/19at 04:00; Start 02/16/19 at 04:00; Stop 02/16/19 at 04:59; Status DC Morphine Sulfate (Morphine Sulfate) 4 mg 1X ONCE IV Last administered on 02/16/19at 04:00; Start 02/16/19 at 04:00; Stop 02/16/19 at 10:28; Status DC Ondansetron HCl (Zofran) 4 mg 1X ONCE IV Last administered on 02/16/19at 04:00; Start 02/16/19 at 04:00; Stop 02/16/19 at 04:01; Status DC Ondansetron HCl (Zofran) 4 mg 1X ONCE IV Last administered on 02/16/19at 05:14; Start 02/16/19 at 05:30; Stop 02/16/19 at 05:31; Status DC Ondansetron HCl (Zofran) 4 mg PRN Q8HRS PRN IV NAUSEA/VOMITING 1ST CHOICE; Start 02/16/19 at 05:45; Stop 02/17/19 at 05:44 Sodium Chloride 1,000 ml @ 125 mls/hr Q8H IV Last administered on 02/16/19at 10:10; Start 02/16/19 at 06:00; Stop 02/17/19 at 05:59 Acetaminophen (Tylenol) 1,000 mg PRN Q6HRS PRN PO pain; Start 02/16/19 at 10:30; Status UNV Active Scripts Active Lyrica (Pregabalin) 75 Mg Capsule 1 Cap PO TID Levothyroxine Sodium 100 Mcg Tablet 1 Tab PO DAILY Prozac (Fluoxetine Hcl) 20 Mg Capsule 10 Mg PO DAILY 30 Days Cyclobenzaprine Hcl 10 Mg Tablet 1 Tab PO TID Reported Flonase Allergy Relief (Fluticasone Propionate) 9.9 Ml [place].susp 2 Sprays NS DAILY Spiriva (Tiotropium [place]) 18 Mcg Cap.w.dev 2 Inh IH DAILY Clearlax (Polyethylene Glycol 3350) 119 Gm Powder 119 Gm PO PRN PRN [progesterone/estr] DAILY Aspirin 81 Mg Tab.chew 1 Tab PO DAILY Zetia (Ezetimibe) 10 Mg Tablet 1 Tab PO DAILY Simvastatin 20 Mg Tablet 1 Tab PO QHS [flaxseed] DAILY Vitamin D3 (Cholecalciferol (Vitamin D3)) 5,000 Unit Tablet 50,000 Unit PO Ibuprofen 800 Mg Tablet 800 Mg PO PRN Q6HRS PRN Ventolin Hfa Inhaler (Albuterol Sulfate) 18 Gm Hfa.aer.ad 2 Puff INH Q4HRS PRN Symbicort 160-4.5 Mcg Inhaler (Budesonide/Formoterol Fumarate) 10.2 Gm Hfa.aer.ad 10.2 Gm IH PRN Omeprazole 20 Mg Capsule.dr 20 Mg PO DAILY Vitals/I & O Vital Sign - Last 24 Hours 02/16/19 02/16/19 02/16/19 02/16/19 00:27 00:58 01:28 01:58 Temp 98.1 98.1 Pulse 68 76 82 56 Resp 27 B/P (MAP) 114/59 (77) 116/83 (94) 102/56 (71) 100/57 (71) Pulse Ox 97 96 95 94 O2 Delivery Room Air Room Air Room Air Room Air 02/16/19 02/16/19 02/16/19 02/16/19 02:28 02:58 03:28 04:00 Pulse 76 74 70 Resp 20 20 18 16 B/P (MAP) 91/51 (64) 87/60 (69) 81/52 (62) Pulse Ox 91 92 94 100 O2 Delivery Room Air Room Air Room Air Room Air 02/16/19 02/16/19 02/16/19 02/16/19 04:17 04:28 04:41 04:58 Pulse 68 76 76 72 Resp 23 23 21 B/P (MAP) 89/50 (63) 77/41 (53) 90/53 (65) 89/51 (64) Pulse Ox 94 93 93 94 O2 Delivery Room Air Room Air Room Air Room Air 02/16/19 02/16/19 02/16/19 02/16/19 05:06 05:28 05:58 06:45 Pulse 66 64 70 Resp 20 20 22 B/P (MAP) 90/52 (65) 98/51 (67) 89/53 (65) Pulse Ox 94 94 93 O2 Delivery Room Air Room Air Room Air Room Air 02/16/19 02/16/19 07:30 07:50 Temp 98.3 98.3 Pulse 73 Resp 20 B/P (MAP) 84/44 (57) Pulse Ox 97 O2 Delivery Room Air Room Air TERRI ALBA MD Feb 16, 2019 10:35
[2019-02-16] MEDS ORDERED: LOSA100T14 PO (10:39)
[2019-02-16 10:45] VITALS: BP 87/52
[2019-02-16] MEDS ORDERED: ALBUTEROL SULFATE 2.5 MG/3 ML NEBU. NEB PRN (10:45)
[2019-02-16] MEDS ORDERED: LEVOTHYROXINE 100 MCG TABLET PO SCH (11:00)
[2019-02-16] MEDS ORDERED: EZETIMIBE 10 MG TABLET. PO SCH (11:00)
[2019-02-16] MEDS ORDERED: PANTOPRAZOLE 40 MG TABLET.DR. PO SCH (11:00)
[2019-02-16] MEDS ORDERED: ASPIRIN CHEWABLE 81 MG TABLET. PO SCH (11:00)
[2019-02-16] MEDS ORDERED: FLUTICASONE 50MCG/NASAL SPRAY 16GM BOTTLE. NS SCH (11:00)
[2019-02-16] MEDS ORDERED: FLUoxetine HCL 20 MG CAPSULE PO SCH (11:00)
--- NOTE | 2019-02-16 11:25 | SSS ---
ADMIT DATE: 02/16/2019 CHIEF COMPLAINT: Syncope. HISTORY OF PRESENT ILLNESS: The patient is a 63-year-old female with a history of intermittent syncope thought to be neurogenic. She is presently undergoing evaluation of her syncope by Dr. Dowell with a 30-day event recorder, which was placed earlier this month. The patient was brought to the Emergency Room after having experienced syncope at her brother's home. The experience was similar to her other episodes of syncope where she feels things getting black and closing in on her and then quickly loses consciousness. On the evening prior to admission, she experienced syncope while sitting on a barstool and fell to the floor. Initial evaluation in the Emergency Room showed her to be alert and oriented. Her blood pressure was initially 114/59, but then quickly decreased to a systolic in the 90s. Evaluation in the Emergency Room included a series of x-rays, which were negative for any fractures or other injuries from her fall. She was started on IV fluids and admitted for further care. PAST MEDICAL HISTORY: Syncope, hypertension, mood disorder, COPD, hyperlipidemia, narcolepsy, chronic insomnia, hypothyroidism, GERD, fibromyalgia. PAST SURGICAL HISTORY: Cholecystectomy, benign lumpectomy right breast, tubal ligation, rotator cuff repair, tonsillectomy. ALLERGIES: THE PATIENT IS ALLERGIC TO SULFA AND BEES. HOME MEDICATIONS: Lunesta 3 mg daily, ibuprofen p.r.n., Dagmar, simvastatin daily, Zetia 10 mg daily, Lyrica 75 mg t.i.d., aspirin 81 mg daily, Symbicort and Spiriva inhalers, which she uses rarely; Ventolin inhaler as needed, Flexeril 10 mg p.r.n., Prozac 10 mg daily, omeprazole 20 mg daily, losartan 100 mg daily, progesterone, levothyroxine 100 mcg daily, Provigil 200 mg every a.m. FAMILY HISTORY: Noncontributory. SOCIAL HISTORY: The patient used to smoke cigarettes, but has not smoked in over 5 years. She does not drink alcohol to excess. She is . REVIEW OF SYSTEMS: The patient denies fever or chills. She denies chest pain or palpitations. She denies cough or shortness of breath. She feels herself wheezing occasionally, but uses her albuterol inhaler for this. She denies abdominal pain, nausea or vomiting. Her mood has been pretty good with her usual medication. Her last episode of syncope was about 1 month ago. She checks her blood pressure at home periodically and has had most measurements in and about the 90s systolic recently. She does occasionally feel lightheaded when she first stands up. PHYSICAL EXAMINATION: GENERAL: The patient is alert and oriented x 3, resting comfortably in bed, in no acute distress. HEENT: PERRL, EOMI, sclerae clear. Oropharynx: Mucous membranes moist. NECK: Supple, without lymphadenopathy. CHEST: Clear to auscultation. CARDIOVASCULAR: Regular rhythm without murmur. ABDOMEN: Soft, nontender, normoactive bowel sounds are present. EXTREMITIES: Without edema. HOSPITAL COURSE: The patient was admitted and placed on telemetry where she remains in sinus rhythm. She has IV fluids running for hydration. She also just finished eating breakfast with a good appetite. Her blood pressure has continued to be in the 80s or 90s systolic. She reports that she last took her losartan at 5:00 p.m. yesterday, although she does usually take it in the morning. She denies lightheadedness or other symptoms. She will be seen in consultation by Dr. Powers. It is anticipated that she will be able to return home later today if her vital signs remain stable. She is advised to discontinue her losartan completely at this time. She is to check her blood pressure at home and schedule an office visit with Dr. Ratliff within 2 weeks for further management of her hypertension. She is to follow up with Dr. Dowell as already scheduled for the results of her event recorder. FINAL DIAGNOSES: 1. Neurogenic syncope. 2. Hypotension. DISCHARGE MEDICATIONS: Remain the same as at admission except that the patient is to discontinue her losartan completely at this time. DISCHARGE INSTRUCTIONS: Follow up with Dr. Ratliff within 2 weeks. Follow up with Dr. Dowell as already scheduled. TERRI LABA MD DR: CECILLE/yazan JOB#: [id number] / [id number] JAY
[2019-02-16] MEDS ORDERED: FLUoxetine HCL 10 MG CAPSULE PO SCH (11:30)
--- NOTE | 2019-02-16 11:34 | PDOC2 ---
CONSULT Date of Consult Date of Consult DATE: 02/16/19 TIME: 11:34 Reason for Consult Reason for Consult: Syncope Referring Physician Referring Physician: Dr. Ardon Identification/Chief Complaint Chief Complaint Syncope Source Source: Chart review, Patient History of Present Illness Reason for Visit: 63-year-old female who was recently seen in our office for recurrent syncope by Dr. Dowell and presently on an event monitor presented with another episode of syncope when she was sitting on her barstool. She denied any preceding chest pain, palpitations or shortness of breath. She apparently had a total of 9 episodes of marco antonio syncope since August. Past Medical History Past Medical History Hypertension Hyperlipidemia Hypothyroidism COPD Narcolepsy Gastroesophageal reflux disease Fibromyalgia Past Surgical History Past Surgical History Cholecystectomy Tonsillectomy Lumpectomy right breast Rotator cuff repair Family History Family History not contributory Social History Social History Patient quit smoking 5 years ago and admitted to social intake of alcohol. She denied any drug abuse. Current Problem List Problem List Problems Medical Problems: (1) Syncope and collapse Status: Acute Current Medications Current Medications Current Medications Sodium Chloride 1,000 ml @ 1,000 mls/hr 1X ONCE IV Last administered on 02/16/19at 04:00; Start 02/16/19 at 04:00; Stop 02/16/19 at 04:59; Status DC Morphine Sulfate (Morphine Sulfate) 4 mg 1X ONCE IV Last administered on 02/16/19at 04:00; Start 02/16/19 at 04:00; Stop 02/16/19 at 10:28; Status DC Ondansetron HCl (Zofran) 4 mg 1X ONCE IV Last administered on 02/16/19at 04:00; Start 02/16/19 at 04:00; Stop 02/16/19 at 04:01; Status DC Ondansetron HCl (Zofran) 4 mg 1X ONCE IV Last administered on 02/16/19at 05:14; Start 02/16/19 at 05:30; Stop 02/16/19 at 05:31; Status DC Ondansetron HCl (Zofran) 4 mg PRN Q8HRS PRN IV NAUSEA/VOMITING 1ST CHOICE; Start 02/16/19 at 05:45; Stop 02/17/19 at 05:44 Sodium Chloride 1,000 ml @ 125 mls/hr Q8H IV Last administered on 02/16/19at 10:10; Start 02/16/19 at 06:00; Stop 02/17/19 at 05:59 Acetaminophen (Tylenol) 1,000 mg PRN Q6HRS PRN PO pain Last administered on 02/16/19 11:02; Start 02/16/19 at 10:30 Aspirin (Children'S Aspirin) 81 mg DAILY PO Last administered on 02/16/19at 11:02; Start 02/16/19 at 11:00 Cyclobenzaprine HCl (Flexeril) 10 mg TID PO ; Start 02/16/19 at 14:00 EZETIMIBE (Zetia) 10 mg DAILY PO Last administered on 02/16/19 11:02; Start 02/16/19 at 11:00 Fluoxetine HCl (PROzac) 10 mg DAILY PO ; Start 02/16/19 at 11:00; Stop 02/16/19 at 11:12; Status DC Levothyroxine Sodium (Synthroid) 100 mcg DAILY06 PO Last administered on 02/16/19at 11:02; Start 02/16/19 at 11:00 Pregabalin (Lyrica) 75 mg TID PO ; Start 02/16/19 at 14:00 Non-Formulary Medication (Albuterol Sulfate (Ventolin Hfa Inhaler)) 2 puff Q4HRS PRN INH SHORTNESS OF BREATH; Start 02/16/19 at 10:30; Status UNV Fluticasone Propionate (Flonase) 2 spray DAILY NS Last administered on 02/16/19at 11:02; Start 02/16/19 at 11:00 Pantoprazole Sodium (Protonix) 40 mg DAILYAC PO Last administered on 02/16/19at 11:02; Start 02/16/19 at 11:00 Simvastatin (Zocor) 20 mg HS PO ; Start 02/16/19 at 21:00 Albuterol Sulfate (Ventolin Neb Soln) 2.5 mg PRN Q4HRS PRN NEB SHORTNESS OF BREATH; Start 02/16/19 at 10:45 Fluoxetine HCl (PROzac) 10 mg DAILY PO ; Start 02/16/19 at 11:30 Active Scripts Active Losartan Potassium 100 Mg Tablet 100 Mg PO DAILY 30 Days Lyrica (Pregabalin) 75 Mg Capsule 1 Cap PO TID Levothyroxine Sodium 100 Mcg Tablet 1 Tab PO DAILY Prozac (Fluoxetine Hcl) 20 Mg Capsule 10 Mg PO DAILY 30 Days Cyclobenzaprine Hcl 10 Mg Tablet 1 Tab PO TID Reported Flonase Allergy Relief (Fluticasone Propionate) 9.9 Ml [place].susp 2 Sprays NS DAILY Spiriva (Tiotropium [place]) 18 Mcg Cap.w.dev 2 Inh IH DAILY Clearlax (Polyethylene Glycol 3350) 119 Gm Powder 119 Gm PO PRN PRN [progesterone/estr] DAILY Aspirin 81 Mg Tab.chew 1 Tab PO DAILY Zetia (Ezetimibe) 10 Mg Tablet 1 Tab PO DAILY Simvastatin 20 Mg Tablet 1 Tab PO QHS [flaxseed] DAILY Vitamin D3 (Cholecalciferol (Vitamin D3)) 5,000 Unit Tablet 50,000 Unit PO Ibuprofen 800 Mg Tablet 800 Mg PO PRN Q6HRS PRN Ventolin Hfa Inhaler (Albuterol Sulfate) 18 Gm Hfa.aer.ad 2 Puff INH Q4HRS PRN Symbicort 160-4.5 Mcg Inhaler (Budesonide/Formoterol Fumarate) 10.2 Gm Hfa.aer.ad 10.2 Gm IH PRN Omeprazole 20 Mg Capsule.dr 20 Mg PO DAILY Allergies Allergies: Coded Allergies: venom-wasp protein (Verified Allergy, Severe, ANT VENOM, 09/12/18) SWELLING Sulfa (Sulfonamide Antibiotics) (Unverified Allergy, Intermediate, Itching, 06/08/14) gi venom-honey bee (Verified Allergy, Intermediate, SWELLING, 06/08/14) ROS PSYCHOLOGICAL ROS: No: Hallucinations Eyes: No Loss of vision HEENT: No: Epistaxis Respiratory: No: Hemoptysis, Shortness of breath Cardiovascular: No Chest Pain, No Palpitations Gastrointestinal: No Vomiting, No Diarrhea Genitourinary: No Hematuria Neurological: Yes Other (syncope); No Seizures Skin: No Rash Physical Exam General: Alert, Oriented X3 HEENT: Atraumatic, PERRLA Lungs: Clear to auscultation Heart: Regular rate, No murmurs Abdomen: Soft, No tenderness Extremities: No edema Psych/Mental Status: Mood NL Vitals VITALS Vital Signs Date Time Temp Pulse Resp B/P (MAP) Pulse Ox O2 Delivery O2 Flow Rate FiO2 02/16/19 10:45 98.3 68 18 87/52 (64) 96 Room Air 98.3 Labs Labs Laboratory Tests Test 02/16/19 00:35 White Blood Count 11.0 x10^3/uL (4.0-11.0) Red Blood Count 4.66 x10^6/uL (3.50-5.40) Hemoglobin 14.0 g/dL (12.0-15.5) Hematocrit 42.4 % (36.0-47.0) Mean Corpuscular Volume 91 fL (79-100) Mean Corpuscular Hemoglobin 30 pg (25-35) Mean Corpuscular Hemoglobin Concent 33 g/dL (31-37) Red Cell Distribution Width 13.2 % (11.5-14.5) Platelet Count 211 x10^3/uL (140-400) Neutrophils (%) (Auto) 83 % (31-73) Lymphocytes (%) (Auto) 12 % (24-48) Monocytes (%) (Auto) 4 % (0-9) Eosinophils (%) (Auto) 0 % (0-3) Basophils (%) (Auto) 0 % (0-3) Neutrophils # (Auto) 9.1 x10^3uL (1.8-7.7) Lymphocytes # (Auto) 1.3 x10^3/uL (1.0-4.8) Monocytes # (Auto) 0.5 x10^3/uL (0.0-1.1) Eosinophils # (Auto) 0.0 x10^3/uL (0.0-0.7) Basophils # (Auto) 0.0 x10^3/uL (0.0-0.2) Sodium Level 141 mmol/L (136-145) Potassium Level 3.9 mmol/L (3.5-5.1) Chloride Level 102 mmol/L (98-107) Carbon Dioxide Level 25 mmol/L (21-32) Anion Gap 14 (6-14) Blood Urea Nitrogen 14 mg/dL (7-20) Creatinine 1.5 mg/dL (0.6-1.0) Estimated GFR (Cockcroft-Gault) 35.2 BUN/Creatinine Ratio 9 (6-20) Glucose Level 134 mg/dL (70-99) Calcium Level 9.2 mg/dL (8.5-10.1) Total Bilirubin 0.5 mg/dL (0.2-1.0) Aspartate Amino Transf (AST/SGOT) 50 U/L (15-37) Alanine Aminotransferase (ALT/SGPT) 59 U/L (14-59) Alkaline Phosphatase 125 U/L (46-116) Troponin I Quantitative < 0.017 ng/mL (0.000-0.055) QT-Tlt-L-Type Natriuretic Peptide 97 pg/mL (0-124) Total Protein 8.1 g/dL (6.4-8.2) Albumin 3.9 g/dL (3.4-5.0) Albumin/Globulin Ratio 0.9 (1.0-1.7) Laboratory Tests Test 02/16/19 00:35 White Blood Count 11.0 x10^3/uL (4.0-11.0) Red Blood Count 4.66 x10^6/uL (3.50-5.40) Hemoglobin 14.0 g/dL (12.0-15.5) Hematocrit 42.4 % (36.0-47.0) Mean Corpuscular Volume 91 fL (79-100) Mean Corpuscular Hemoglobin 30 pg (25-35) Mean Corpuscular Hemoglobin Concent 33 g/dL (31-37) Red Cell Distribution Width 13.2 % (11.5-14.5) Platelet Count 211 x10^3/uL (140-400) Neutrophils (%) (Auto) 83 % (31-73) Lymphocytes (%) (Auto) 12 % (24-48) Monocytes (%) (Auto) 4 % (0-9) Eosinophils (%) (Auto) 0 % (0-3) Basophils (%) (Auto) 0 % (0-3) Neutrophils # (Auto) 9.1 x10^3uL (1.8-7.7) Lymphocytes # (Auto) 1.3 x10^3/uL (1.0-4.8) Monocytes # (Auto) 0.5 x10^3/uL (0.0-1.1) Eosinophils # (Auto) 0.0 x10^3/uL (0.0-0.7) Basophils # (Auto) 0.0 x10^3/uL (0.0-0.2) Sodium Level 141 mmol/L (136-145) Potassium Level 3.9 mmol/L (3.5-5.1) Chloride Level 102 mmol/L (98-107) Carbon Dioxide Level 25 mmol/L (21-32) Anion Gap 14 (6-14) Blood Urea Nitrogen 14 mg/dL (7-20) Creatinine 1.5 mg/dL (0.6-1.0) Estimated GFR (Cockcroft-Gault) 35.2 BUN/Creatinine Ratio 9 (6-20) Glucose Level 134 mg/dL (70-99) Calcium Level 9.2 mg/dL (8.5-10.1) Total Bilirubin 0.5 mg/dL (0.2-1.0) Aspartate Amino Transf (AST/SGOT) 50 U/L (15-37) Alanine Aminotransferase (ALT/SGPT) 59 U/L (14-59) Alkaline Phosphatase 125 U/L (46-116) Troponin I Quantitative < 0.017 ng/mL (0.000-0.055) DC-Hzq-C-Type Natriuretic Peptide 97 pg/mL (0-124) Total Protein 8.1 g/dL (6.4-8.2) Albumin 3.9 g/dL (3.4-5.0) Albumin/Globulin Ratio 0.9 (1.0-1.7) Assessment/Plan Assessment/Plan 1. Recurrent syncope of uncertain etiology. EKG showed sinus rhythm and telemetry did not show any significant arrhythmias. 2-D echo in August 2018 showed normal LV function with EF 60-65%. Patient is hypotensive. Stop losartan and continue other medications. Carotid artery massage did not elicit evidence for carotid artery hypersensitivity syndrome. Continue event monitor recording and consider tilt table test as an outpatient. 2. Hypothyroidism: On levo thyroxine 3. Asthma: Clinically stable 4. Hyperlipidemia: On zocor and zetia Thank you for your consultation DONIS GILLIAM MD Feb 16, 2019 11:34
[2019-02-16] MEDS ORDERED: PREGABALIN 75 MG CAPSULE PO SCH (14:00)
[2019-02-16] MEDS ORDERED: CYCLOBENZAPRINE 10 MG TABLET. PO SCH (14:00)
[2019-02-16 14:59] VITALS: BP 85/41
[2019-02-16] MEDS ORDERED: SIMVASTATIN 20 MG TABLET PO SCH (21:00)
== END 2019-02-16 20:41 | disposition home or self-care (01) | DRG 316 ==
LOC: ER 00:15 → 2 NORTH 05:30
PROVIDERS: ADMIT Family Medicine; ATTEND Family Medicine
DX: I95.9 Hypotension, unspecified (principal); G47.419 Narcolepsy without cataplexy; R55 Syncope and collapse; E03.9 Hypothyroidism, unspecified; E78.5 Hyperlipidemia, unspecified; I10 Essential (primary) hypertension; J44.9 Chronic obstructive pulmonary disease, unspecified; K21.9 Gastro-esophageal reflux disease without esophagitis; M79.7 Fibromyalgia; W18.39XA Other fall on same level, initial encounter; G89.29 Other chronic pain; Z87.891 Personal history of nicotine dependence; Z88.2 Allergy status to sulfonamides; Z91.030 Bee allergy status; Y93.89 Activity, other specified; Y92.89 Other specified places as the place of occurrence of the external cause; Y99.8 Other external cause status; Z98.51 Tubal ligation status; Z90.49 Acquired absence of other specified parts of digestive tract
CPT/HCPCS: 36415; 70450; 71045; 72125; 73100; 73562; 80053; 83880; 84484; 85025; 93005; 94640; 94760; 96361; 96374; 96375; 96376; J2270; J2405; J7030; J7613; 99285-25

== ENCOUNTER → 2019-02-21 | Outpatient (CLI) | payer MEDICARE, MEDICAID ==
[2019-02-16 14:59] VITALS: BP 85/41
[~2019-02-21] VITALS: Ht 162.6 cm; Wt 73.5 kg
[~2019-02-21] MED LIST changes: +LOSA100T14 PO; +PREG75CA PO
--- NOTE | 2019-02-24 09:57 | CARD ---
MR#: [id number] Date of Study: 02/21/2019 Tech: Lizette Jones RN APPROVED REPORT EXAM Tilt Table Syncopal episodes Attending Nurse: Lizette Jones RN HISTORY The Patient is a 63 year-old female with a history of syncope,hypertension,mood disorder, COPD,hypoth yroidism INDICATIONS S1,S2 regular rate and rhythm, lungs are diminished in the bases. Lump to left base of skull and lef t eye, also above eye from fall this past Sunday. Patient also has bruised right knee, left should er, and top of left hand. Patient states she feels a little bit lightheaded. Patient was a difficul t stick for IV. PROCEDURE After explaining the risks, benefits, and alternative options, informed consent was obtained from the patient. Base - lineRhythm: SinusHR: 73 bpmBP: 112/93bzKhH6 Sat: 99 % Flat13:33Rhythm: SinusHR: 71 bpmBP: 129/70kvMdN7 Sat: 100 % Flat13:38Rhythm: SinusHR: 75 bpmBP: 140/56blBnG6 Sat: 99 % 80' Tilt13:43Rhythm: SinusHR: 85 bpmBP: 136/08ufYzV9 Sat: 96 % 80' Tilt13:48Rhythm: SinusHR: 84 bpmBP: 126/74skGzV9 Sat: 97 % 80' Tilt13:53Rhythm: SinusHR: 87 bpmBP: 94/87eqCbA8 Sat: 97 % 80' Tilt13:58Rhythm: SinusHR: 80 bpmBP: 76/22isWeN2 Sat: 98 % 80' Tilt14:03Rhythm: SinusHR: 82 bpmBP: 80/21mpExE3 Sat: 94 % 80' Tilt14:08Rhythm: SinusHR: 85 bpmBP: 85/06saXlX1 Sat: 97 % 80' Tilt14:13Rhythm: SinusHR: 88 bpmBP: 94/49gyPoL9 Sat: 98 % Flat14:18Rhythm: SinusHR: 76 bpmBP: 113/60gnZbQ4 Sat: 99 % Flat14:23Rhythm: SinusHR: 73 bpmBP: 123/63srKwF3 Sat: 98 % COMPLICATIONS Patient stated she felt a little dizzy when we first tilted her up but that passed. No other symptom s. CONCLUSION Patient had orthostatic response without any evidence for neurocardiogenic syncope Signed by : Marvin Powers, Electronically Approved : 02/24/2019 09:57:06
== END | disposition home or self-care (01) ==
LOC: EKG 12:09
PROVIDERS: ATTEND Internal Medicine Cardiovascular Disease
DX: S80.01XA Contusion of right knee, initial encounter (principal); S40.012A Contusion of left shoulder, initial encounter; S60.222A Contusion of left hand, initial encounter; R55 Syncope and collapse; I10 Essential (primary) hypertension; J44.9 Chronic obstructive pulmonary disease, unspecified; E03.9 Hypothyroidism, unspecified; W19.XXXA Unspecified fall, initial encounter; Y93.89 Activity, other specified; Y92.89 Other specified places as the place of occurrence of the external cause; Y99.8 Other external cause status
CPT/HCPCS: 93660

== ENCOUNTER 2019-06-29 01:08 | Emergency (ER) | payer MEDICARE, MEDICAID ==
[~2019-06-29] VITALS: Ht 165.1 cm; Wt 68.0 kg
[~2019-06-29 01:08] MED LIST changes: -EZET10TA18 PO; +EZET10TA20 PO
[2019-06-29] MEDS ORDERED: IV NORMAL SALINE 1000ML BAG 1,000 ML IV ONE (01:45)
[2019-06-29] MEDS ORDERED: TETANUS AND DIPHTHERIA TOX/PF 0.5 ML DISP.SYRIN. VAX IM ONE (01:45)
--- NOTE | 2019-06-29 03:21 | RAD ---
CT HEAD AND MAXILLOFACIAL WO Date: 06/29/2019 1:35 AM Clinical Indication: Syncope, head injury Comparison: 02/16/2019. Technique: 5 mm axial tomographic images were obtained of the head without contrast. These were viewed on brain and bone windows. Axial helical images of the face were obtained without contrast. Axial and coronal reconstruction was performed. One or more of the following dose reduction techniques were utilized: Automated exposure control (AEC), Adjustment of mA and/or kV according to patient size, Use of iterative reconstruction technique such as ASiR, CT scan done according to ALARA and image gently/image wisely CT HEAD FINDINGS: Mild nonspecific periventricular hypoattenuation is most consistent with chronic small vessel ischemic disease. No intra- or extra-axial mass or fluid collection. No acute hemorrhage. The ventricles are normal in size, shape, and morphology. The gaona-white matter junction is normal. The basilar cisterns are patent. The mastoid air cells are clear. No aggressive osseous lesion or fracture. CT FACE FINDINGS: There is no acute facial bone fracture. The paranasal sinuses are clear. The orbits are normal. The globes are intact. The nasal septum is mostly midline. The ostiomeatal complexes are narrow but patent. Impression: 1. No acute intracranial process. 2. No acute facial bone fracture. Electronically signed by: Harpal Acosta MD (06/29/2019 3:18 AM) [facility]
--- NOTE | 2019-06-29 03:39 | PHYS DOC ---
Past Medical History Past Medical History: Hypothyroid Additional Past Medical Histor: Chronic Back Pain Past Surgical History: Tonsillectomy Additional Past Surgical Histo: BREAST BIOPSY X2, RIGHT ROTATOR CUFF REPAIR, BACK SURGERY Alcohol Use: Rarely Drug Use: None Adult General Chief Complaint Chief Complaint: LOSS OF CONSCIOUSNESS HPI HPI Patient is a 63-year-old female who was drinking alcohol tonight. She states she did several fireball shots. She was sitting on a ledge when she passed out fell and hit the concrete. She did not lose consciousness. She denies any preceding symptoms such as palpitations or chest pain. She has not had any shortness of breath. She states she did open the laceration on her forehead. She is never passed out before. She states she does not typically drink heavily. Unsure when her last tetanus shot was.[] Review of Systems Review of Systems Constitutional: Denies fever or chills [] Eyes: Denies change in visual acuity, redness, or eye pain [] HENT: Denies nasal congestion or sore throat [] Respiratory: Denies cough or shortness of breath [] Cardiovascular: No additional information not addressed in HPI [] GI: Denies abdominal pain, nausea, vomiting, bloody stools or diarrhea [] : Denies dysuria or hematuria [] Musculoskeletal: Denies back pain or joint pain [] Integument: Per history of present illness[] Neurologic: Denies headache, focal weakness or sensory changes [] Endocrine: Denies polyuria or polydipsia [] All other systems were reviewed and found to be within normal limits, except as documented in this note. Current Medications Current Medications Current Medications Medications (Trade) Dose Ordered Sig/Blanquita Start Time Stop Time Status Last Admin Dose Admin Sodium Chloride 1,000 ml @ 1,000 mls/hr 1X ONCE 06/29/19 01:45 06/29/19 02:44 DC Tetanus/ Diphtheria Toxoids (Tenivac Syringe) 0.5 ml ONCE ONCE 06/29/19 01:45 06/29/19 01:46 DC 06/29/19 01:59 0.5 ML Allergies Allergies Allergies Coded Allergies Type Severity Reaction Last Updated Verified venom-wasp protein Allergy Severe ANT VENOM 09/12/18 Yes Sulfa (Sulfonamide Antibiotics) Allergy Intermediate Itching 06/08/14 No venom-honey bee Allergy Intermediate SWELLING 06/08/14 Yes Physical Exam Physical Exam Constitutional: Well developed, well nourished, mild distress, non-toxic appearance. [] HENT: She is 2 cm laceration above her left eyebrow that is stellate in nature she also has an abrasion/contusion to the bridge of her nose and a small abrasion on her chin. [] Eyes: PERRLA, EOMI, conjunctiva normal, no discharge. [] Neck: Normal range of motion, no tenderness, supple, no stridor. [] Cardiovascular:Heart rate regular rhythm, no murmur [] Lungs & Thorax: Bilateral breath sounds clear to auscultation [] Abdomen: Bowel sounds normal, soft, no tenderness, no masses, no pulsatile masses. [] Skin: Warm, dry, no erythema, no rash. [] Back: No tenderness, no CVA tenderness. [] Extremities: No tenderness, no cyanosis, no clubbing, ROM intact, no edema. [] Neurologic: Alert and oriented X 3, normal motor function, normal sensory function, no focal deficits noted. [] Psychologic: Very pleasant in no distress. [] Current Patient Data Vital Signs Vital Signs Date Time Temp Pulse Resp B/P (MAP) Pulse Ox O2 Delivery O2 Flow Rate FiO2 06/29/19 01:31 98.1 89 16 102/70 (81) 99 Room Air 98.1 EKG EKG [EKG: Incomplete right bundle branch block no obvious ischemic ST-T changes] Radiology/Procedures Radiology/Procedures [] Impressions: PROCEDURE: CT HEAD AND MAXILLOFACIAL WO CT HEAD AND MAXILLOFACIAL WO Date: 06/29/2019 1:35 AM Clinical Indication: Syncope, head injury Comparison: 02/16/2019. Technique: 5 mm axial tomographic images were obtained of the head without contrast. These were viewed on brain and bone windows. Axial helical images of the face were obtained without contrast. Axial and coronal reconstruction was performed. One or more of the following dose reduction techniques were utilized: Automated exposure control (AEC), Adjustment of mA and/or kV according to patient size, Use of iterative reconstruction technique such as ASiR, CT scan done according to ALARA and image gently/image wisely CT HEAD FINDINGS: Mild nonspecific periventricular hypoattenuation is most consistent with chronic small vessel ischemic disease. No intra- or extra-axial mass or fluid collection. No acute hemorrhage. The ventricles are normal in size, shape, and morphology. The gaona-white matter junction is normal. The basilar cisterns are patent. The mastoid air cells are clear. No aggressive osseous lesion or fracture. CT FACE FINDINGS: There is no acute facial bone fracture. Course & Med Decision Making Course & Med Decision Making Pertinent Labs and Imaging studies reviewed. (See chart for details) [ED course: It was very difficult to tell if the patient had a syncopal episode or was just intoxicated and passed out. I felt that it was best to work the patient up with any EKG and lab work. However, the patient adamantly refused any laboratory studies. She understands the risk of this.] Procedure: Forehead Laceration repair The wound was thoroughly irrigated with wound wash under pressure the wound was inspected for foreign body by me none were found. Then using Dermabond the wound edges were nicely reapproximated. Patient tolerated the procedure well. Dragon Disclaimer Dragon Disclaimer This electronic medical record was generated, in whole or in part, using a voice recognition dictation system. Departure Departure Impression: Primary Impression: Syncope Additional Impression: Forehead laceration Disposition: 01 HOME, SELF-CARE Condition: STABLE Referrals: NATALEE BROWN MD (PCP) Patient Instructions: Facial Laceration, Laceration Care, Adult, Syncope, Tissue Adhesive Wound Care Additional Instructions: Return to the emergency department with any new or concerning symptoms Problem Qualifiers Primary Impression: Syncope Syncope type: unspecified Qualified Codes: R55 - Syncope and collapse Additional Impression: Forehead laceration Encounter type: initial encounter Qualified Codes: S01.81XA - Laceration without foreign body of other part of head, initial encounter MARILUZ RAMOS DO Jun 29, 2019 03:39
[2019-06-29 04:00] VITALS: BP 121/70
--- NOTE | 2019-06-30 07:34 | EKG ---
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
== END 2019-06-29 04:05 | disposition home or self-care (01) ==
LOC: ER 01:08
DX: S01.81XA Laceration without foreign body of other part of head, initial encounter (principal); R55 Syncope and collapse; E03.9 Hypothyroidism, unspecified; G89.29 Other chronic pain; Z90.89 Acquired absence of other organs; Z88.2 Allergy status to sulfonamides; Z91.030 Bee allergy status; W17.89XA Other fall from one level to another, initial encounter; Y93.89 Activity, other specified; Y92.89 Other specified places as the place of occurrence of the external cause; Y99.8 Other external cause status
CPT/HCPCS: 12011; 70450; 70486; 90471; 90714; 93005; 99285-25

== ENCOUNTER 2019-12-12 23:35 | Emergency (ER) | payer MEDICARE, MEDICAID ==
[~2019-12-12] VITALS: Ht 162.6 cm; Wt 78.2 kg
[~2019-12-12 23:35] MED LIST changes: -OMEP20CA10 PO; +OMEP20CA16 PO; +POTA20TA4 PO; -POTA20TA82 PO; +SIMV20TA18 PO; -SIMV20TA3 PO
[2019-12-13 00:20] VITALS: BP 182/101
[2019-12-13] MEDS ORDERED: LIDOCAINE 1% PF 2 ML VIAL. INJ ONE (00:30)
--- NOTE | 2019-12-13 01:22 | PHYS DOC ---
Past Medical History Past Medical History: Depression, High Cholesterol, Hypertension, Hypothyroid Additional Past Medical Histor: Chronic Back Pain Past Surgical History: Cholecystectomy, Tonsillectomy, Tubal ligation Additional Past Surgical Histo: BREAST BIOPSY X2, RIGHT ROTATOR CUFF REPAIR, BACK SURGERY Smoking Status: Never Smoker Alcohol Use: Rarely Drug Use: None Adult General Chief Complaint Chief Complaint: LACERATION/AVULSION HPI HPI Patient is a 64 year old male who presents to the emergency department with complaints of a laceration to the medial aspect of her right index finger. Patient states she was using a knife to remove this a all other when it slipped and cut her. Patient states her last tetanus shot was less than 5 years ago. She denies any numbness, tingling, or decreased range of motion of the affected finger. Currently rates her pain a 4 out of 10 on the pain scale she denies any alleviating factors, the pain is worse if he touches the area. Review of Systems Review of Systems Complete ROS is negative unless otherwise noted in HPI. Current Medications Current Medications Current Medications Medications (Trade) Dose Ordered Sig/Blanquita Start Time Stop Time Status Last Admin Dose Admin Lidocaine HCl (Xylocaine-Mpf 1% 2ml Vial) 4 ml 1X ONCE 12/13/19 00:30 12/13/19 00:31 DC 12/13/19 01:10 4 ML Neomycin/ Polymyxin/ Bacitracin (Triple Antibiotic Ointment) 1 pkt 1X ONCE 12/13/19 01:30 12/13/19 01:31 UNV Allergies Allergies Allergies Coded Allergies Type Severity Reaction Last Updated Verified venom-wasp protein Allergy Severe ANT VENOM 09/12/18 Yes Sulfa (Sulfonamide Antibiotics) Allergy Intermediate Itching 06/08/14 No venom-honey bee Allergy Intermediate SWELLING 06/08/14 Yes Physical Exam Physical Exam See Above Constitutional: Well developed, well nourished, no acute distress, non-toxic appearance. [] HENT: Normocephalic, atraumatic, bilateral external ears normal, nose normal. [] Eyes: PERRLA, EOMI, conjunctiva normal, no discharge. [] Neck: Normal range of motion, no stridor. [] Cardiovascular:Heart rate regular rhythm Lungs & Thorax: Respirations even and unlabored, no retractions, no respiratory distress Skin: Warm, dry, no erythema, no rash; 1.5 cm laceration noted to the lateral aspect at the base of the right second digit, no active bleeding, no visible f oreign body, Extremities: No cyanosis, ROM intact, no edema. [] Neurologic: Alert and oriented X 3, no focal deficits noted. [] Psychologic: Affect normal, judgement normal, mood normal. [] Current Patient Data Vital Signs Vital Signs Date Time Temp Pulse Resp B/P (MAP) Pulse Ox O2 Delivery O2 Flow Rate FiO2 12/13/19 00:20 98.7 86 18 182/101 (128) 98 Room Air 98.7 EKG EKG [] Radiology/Procedures Radiology/Procedures Laceration Repair by me: Anesthesia: 1% lidocaine locally Location: right index finger Tendon/Joint/Nerves: No injury Foreign body: None detected after copious irrigation and exploration with 200 ml of NS Technique: 3 Simple Interrupted Sutures with 4-0 Ethilon Complexity: No subcutaneous sutures/mucosal repair/edge excision Post Closure Length: 1.5 cm Patient's bleeding was easily controlled in the department and there is no indication of anemia. No evidence of compartment syndrome, neurologic injury, vascular injury, open joint, tendon laceration, or foreign body. Patient is appropriate for outpatient follow up. Course & Med Decision Making Course & Med Decision Making Pertinent Labs and Imaging studies reviewed. (See chart for details) [] Dragon Disclaimer Dragon Disclaimer This electronic medical record was generated, in whole or in part, using a voice recognition dictation system. Departure Departure Impression: Primary Impression: Laceration of right index finger w/o foreign body w/o damage to nail Disposition: 01 HOME, SELF-CARE Condition: STABLE Referrals: NO PCP (PCP) Patient Instructions: Laceration Care, Adult, [id number] Additional Instructions: Keep the area clean and dry. You may take Tylenol or ibuprofen as needed for pain. Keep the dressing that was placed today on for 24 hours then change the dressing twice a day and apply antibiotic ointment to the area. Follow-up with your primary care doctor, or return to the emergency room in 10-14 days to have the sutures removed, sooner if you develop signs of infection including: redness, warmth, drainage, or a fever. Problem Qualifiers Primary Impression: Laceration of right index finger w/o foreign body w/o damage to nail Encounter type: initial encounter Qualified Codes: S61.210A - Laceration without foreign body of right index finger without damage to nail, initial encounter FLOWER FRANKLIN APRN Dec 13, 2019 01:22
[2019-12-13] MEDS ORDERED: NEOMY/BACITR/POLYMYXIN OINT PACKET. TP ONE (01:30)
== END 2019-12-13 01:35 | disposition home or self-care (01) ==
LOC: ER 23:35
DX: S61.210A Laceration without foreign body of right index finger without damage to nail, initial encounter (principal); E78.00 Pure hypercholesterolemia, unspecified; I10 Essential (primary) hypertension; E03.9 Hypothyroidism, unspecified; G89.29 Other chronic pain; Z88.2 Allergy status to sulfonamides; Z91.030 Bee allergy status; W26.0XXA Contact with knife, initial encounter; Y93.89 Activity, other specified; Y92.89 Other specified places as the place of occurrence of the external cause; Y99.8 Other external cause status
CPT/HCPCS: 12001; 99282

== ENCOUNTER → 2020-05-27 | Outpatient (CLI) | payer OTHER ==
[~2020-05-27] MED LIST changes: -LEVO112T4 PO; +LEVO112T49 PO; +POLY119P PO; -POLY119P3 PO; +PREG-9 PO; -PREG75CA PO
--- NOTE | 2020-05-27 16:04 | KCIC ---
CT MAXILLOFACIAL WO CONTRAST History: Reason: SINUS PAIN / Spl. Instructions: / History: Lt maxillary pain, fx nose Jun 2019, congestion. Comparison: Head CT June 29, 2019 Technique: Noncontrast CT imaging was performed of the sinuses. Coronal and sagittal reconstructions were performed. Exposure: One or more of the following individualized dose reduction techniques were utilized for this examination: 1. Automated exposure control 2. Adjustment of the mA and/or kV according to patient size 3. Use of iterative reconstruction technique. Findings: Minimal maxillary and ethmoid sinus mucosal thickening. Sphenoid and frontal sinuses are patent. Patent bilateral ostiomeatal complexes, sphenoid ostia and frontoethmoidal recesses. Nasal septum is relatively midline. Mastoid air cells are clear. Chronic nasal bone fracture. No acute fracture. Orbits are unremarkable. Imaged intracranial contents are unremarkable. Impression: 1. No significant paranasal sinus disease. Patent drainage pathways. Electronically signed by: Zain Lund DO (05/27/2020 4:01 PM) [id number]
--- NOTE | 2020-05-27 17:28 | KCIC ---
2 view study right forearm Clinical indications: Status post fall a few weeks ago. Pain in the mid posterior forearm area. FINDINGS: Right elbow joint effusion is seen. This could be secondary to an occult right radial head fracture. No dislocation is evident. No other fracture is seen. No lytic process is evident. No radiopaque foreign body is evident. IMPRESSION: Possible occult radial head fracture of the right elbow. Electronically signed by: Jameel Real MD (05/27/2020 5:25 PM) [id number]
== END | disposition home or self-care (01) ==
LOC: KCIC CT 12:33
PROVIDERS: ATTEND Family Medicine
DX: M84.48XA Pathological fracture, other site, initial encounter for fracture (principal); M25.421 Effusion, right elbow; M79.631 Pain in right forearm; J34.89 Other specified disorders of nose and nasal sinuses
CPT/HCPCS: 70486; 73090

== ENCOUNTER → 2021-05-31 | Outpatient (CLI) | payer MEDICARE, OTHER ==
[~2021-05-31] MED LIST changes: +METH-572 PO; -METH10TA2 PO
--- NOTE | 2021-05-31 15:34 | CARD ---
MR#: [id number] Date of Study: 05/31/2021 Ordering Physician: AALIYAH RIVERA, Referring Physician: AALIYAH RIVERA, Tech: Jayesh Boyer [facility] APPROVED REPORT EXAM: Two-dimensional and M-mode echocardiogram with Doppler and color Doppler. Other Information Quality : FairHR: 50bpm Rhythm : Bradycardia INDICATION Murmur 2D DIMENSIONS Left Atrium(2D)3.6 (1.6-4.0cm)IVSd0.9 (0.7-1.1cm) Aortic Root(2D)3.1 (2.0-3.7cm)LVDd4.5 (3.9-5.9cm) LVOT Diameter1.9 (1.8-2.4cm)PWd0.8 (0.7-1.1cm) LVDs2.2 (2.5-4.0cm)FS (%) 51.2 % SV77.5 mlLVEF(%)82.5 (>50%) Aortic Valve AoV Peak Otilio.161.2cm/sAoV VTI36.8cm AO Peak GR.10.4mmHgLVOT Peak Otilio.123.4cm/s AO Mean GR.5mmHgAVA (VMAX)2.18cm2 Mitral Valve MV E Nfwsomdn45.7cm/sMV E Peak Gr.4mmHg MV DECEL [id number] A Qmciplrj46.3cm/s MV E Mean Gr.1mmHgE/A Ratio0.8 Pulmonary Valve PV Peak Lxidpllm542.5cm/s Tricuspid Valve TR P. Raprplcq602mx/sTR Peak Gr.23mmHg Pulmonary Vein S1 Crzxljss69.5cm/sD2 Sylybwdy02.5cm/s LEFT VENTRICLE The left ventricle is normal size. There is normal left ventricular wall thickness. The left ventricu lar systolic function is normal. The ejection fraction is 60-65%. There is normal LV segmental wall m otion. Tissue Doppler imaging reveals abnormal left ventricular diastolic dysfunction. No left ventri clayton thrombus noted on this study. There is no ventricular septal defect visualized. There is no left ventricular aneurysm. There is no mass noted in the left ventricle. RIGHT VENTRICLE The right ventricle is normal size. There is normal right ventricular wall thickness. The right ventr icular systolic function is normal. ATRIA The left atrium is mildly dilated. The right atrium size is normal. The interatrial septum is intact with no evidence for an atrial septal defect or patent foramen ovale as noted on 2-D or Doppler imagi ng. AORTIC VALVE The aortic valve is mildly sclerotic. Doppler and Color Flow revealed trace aortic regurgitation. The re is no significant aortic valvular stenosis. There is no aortic valvular vegetation. MITRAL VALVE The mitral valve is normal in structure and function. There is no evidence of mitral valve prolapse. There is no mitral valve stenosis. Doppler and Color-flow revealed mild mitral regurgitation. TRICUSPID VALVE The tricuspid valve is normal in structure and function. Doppler and Color Flow revealed trace tricus pid regurgitation. There is no tricuspid valve prolapse or vegetation. There is no tricuspid valve st enosis. PULMONIC VALVE The pulmonary valve is normal in structure and function. Doppler and Color Flow revealed no pulmonic valvular regurgitation. There is no pulmonic valvular stenosis. GREAT VESSELS The aortic root is normal in size. The ascending aorta is normal in size. The pulmonary artery is nor mal. The IVC is normal in size and collapses >50% with inspiration. PERICARDIAL EFFUSION There is no pleural effusion. There is no evidence of significant pericardial effusion. Critical Notification Critical Value: No <Conclusion> The left ventricular systolic function is normal. The ejection fraction is 60-65%. There is normal LV segmental wall motion. Tissue Doppler imaging reveals abnormal left ventricular diastolic dysfunction. Mild mitral regurgitation. Trace tricuspid regurgitation. There is no evidence of significant pericardial effusion. Signed by : Marvin Powers, Electronically Approved : 05/31/2021 15:33:38
--- NOTE | 2021-06-01 17:24 | RAD ---
MR#: [id number] Date of Study: 05/31/2021 Ordering Physician: AALIYAH RIVERA, Referring Physician: AALIYAH RIVERA, Tech: Royer Cesar MBA, RDMS, RVT, RDCS, RTR APPROVED REPORT Patient Location : OUT-PATIENT Indications Lower Extremity Edema : Bilateral Findings Limited grayscale images of the bilateral saphenofemoral junctions are grossly unremarkable. The rig ht great saphenous vein measures 5.3 mm. The left great saphenous vein measures 5.9 mm. Bilateral g reater and lesser saphenous veins do not show any evidence of reflux Critical Notification Critical Value: No <Conclusion> 1. Negative for reflux the bilateral greater and lesser saphenous veins Signed by : Arnoldo Sarabia, Electronically Approved : 06/01/2021 17:24:03
--- NOTE | 2021-06-01 17:43 | RAD ---
MR#: [id number] Date of Study: 05/31/2021 Ordering Physician: AALIYAH RIVERA, Referring Physician: AALIYAH RIVERA, Tech: Royer Cesar MBA, RDMS, RVT, RDCS, RTR APPROVED REPORT Bilateral Lower Extremity Venous Study for DVT Patient Location: OUT-PATIENT Indications Lower Extremity Edema: Bilateral Vein Imaging (Right) CFV (R): Compressible SFJ (R): Compressible FEM (R): Compressible POP (R): Compressible DFV (R): Compressible PTV (R): Spontaneous GSV (R): Spontaneous Peroneals (R): Spontaneous Vein Imaging (Left) CFV (L): Compressible SFJ (L): Compressible FEM (L): Compressible POP (L): Compressible DFV (L): Compressible PTV (L): Spontaneous GSV (L): Spontaneous Peroneals (L): Spontaneous Doppler Evaluation (Right) CFV (R): Spontaneous POP (R):Spontaneous Doppler Evaluation (Left) CFV (L):Spontaneous POP (L):Spontaneous Findings The bilateral lower extremity deep veins were evaluated for thrombus with color Doppler, spectral and grayscale images. On the right the grayscale images of the common femoral, superficial femoral and popliteal veins do n ot demonstrate any evidence of thrombus and these veins appear to be compressible. The below-knee vei ns were not well visualized but grossly appear to be compressible. Spectral imaging and color Doppler do not reveal any evidence of obstruction to flow with normal respirophasic variation above the knee . Below the knee there is spontaneous flow noted. On the left, the grayscale images of the common femoral, superficial femoral and popliteal veins do n ot demonstrate any evidence of thrombus and these veins appear to be compressible. The below-knee vei ns again were not well visualized but grossly appear to be compressible. Spectral imaging and color D oppler do not reveal any evidence of obstruction to flow with normal respirophasic variation above th e knee. The below-knee veins demonstrate spontaneous flow. Critical Notification Critical Value: No <Conclusion> 1. Negative for DVT in the bilateral lower extremities. 2. Technically difficult study due to body habitus. Signed by : Arnoldo Sarabia, Electronically Approved : 06/01/2021 17:43:12
== END ==
LOC: ECHO 07:43
PROVIDERS: ATTEND Internal Medicine Cardiovascular Disease
DX: I08.0 Rheumatic disorders of both mitral and aortic valves (principal); R60.0 Localized edema
CPT/HCPCS: 93306; 93970

== ENCOUNTER 2021-06-21 20:55 | Emergency (ER) | payer MEDICARE, OTHER ==
[~2021-06-21] VITALS: Ht 162.6 cm; Wt 70.0 kg
--- NOTE | 2021-06-21 21:33 | PHYS DOC ---
Past Medical History Past Medical History: Depression, High Cholesterol, Hypertension, Hypothyroid Additional Past Medical Histor: Chronic Back Pain Past Surgical History: Cholecystectomy, Tonsillectomy, Tubal ligation Additional Past Surgical Histo: BREAST BIOPSY X2, RIGHT ROTATOR CUFF REPAIR, BACK SURGERY Smoking Status: Never Smoker Alcohol Use: Rarely Drug Use: None General Adult EDM: Chief Complaint: UPPER EXTREMITY PAIN HPI: HPI: Patient is a 65 year old female who presents with right wrist and hand pain. States that she was unloading a 50-75 pound item into a dumpster when she lost control of it and it dropped on top of her hand hitting it on top of the metal dumpster ridge. States that she has had some redness and swelling over the distal ulna. Pain radiates into the ulnar aspect of her wrist and into her fourth and fifth digits. No lacerations. Bruising has improved over the course of the day. Painful with pronation supination of the wrist. Review of Systems: Review of Systems: Constitutional: Denies fever or chills. [] Eyes: Denies change in visual acuity. [] HENT: Denies nasal congestion or sore throat. [] Respiratory: Denies cough or shortness of breath. [] Cardiovascular: Denies chest pain or edema. [] GI: Denies abdominal pain, nausea, vomiting, bloody stools or diarrhea. [] : Denies dysuria. [] Musculoskeletal: Right wrist and hand pain. [] Integument: Denies rash. [] Neurologic: Denies headache, focal weakness or sensory changes. [] Endocrine: Denies polyuria or polydipsia. [] Lymphatic: Denies swollen glands. [] Psychiatric: Denies depression or anxiety. [] Heart Score: C/O Chest Pain: No Risk Factors: Risk Factors: DM, Current or recent (<one month) smoker, HTN, HLP, family history of CAD, obesity. Risk Scores: Score 0 - 3: 2.5% MACE over next 6 weeks - Discharge Home Score 4 - 6: 20.3% MACE over next 6 weeks - Admit for Clinical Observation Score 7 - 10: 72.7% MACE over next 6 weeks - Early Invasive Strategies Allergies: Allergies: Allergies Coded Allergies Type Severity Reaction Last Updated Verified venom-wasp protein Allergy Severe ANT VENOM 09/12/18 Yes Sulfa (Sulfonamide Antibiotics) Allergy Intermediate Itching 06/08/14 No venom-honey bee Allergy Intermediate SWELLING 06/08/14 Yes Physical Exam: PE: Constitutional: Well developed, well nourished, no acute distress, non-toxic appearance. [] HENT: Normocephalic, atraumatic, Eyes: conjunctiva normal, no discharge. [] Cardiovascular: Rate normal. Brisk cap refill distally. [] Lungs & Thorax: Normal work of breathing. Normal chest excursion. [] Skin: Warm, dry, no erythema, no rash. [] Extremities: Right distal ulna with some mild redness overlying it. Tenderness over the distal ulna, the ulnar portion of the carpals, and the base of the fourth/fifth metacarpal. No deformity. Minimal swelling. Radial and ulnar pulses 2+. [] Neurologic: Alert and oriented X 3, normal motor function, normal sensory function, no focal deficits noted. Specifically: Median, ulnar, radial nerves intact through motor and sensory function. [] Psychologic: Affect normal, judgement normal, mood normal. [] Current Patient Data: Vital Signs: Vital Signs Date Time Temp Pulse Resp B/P (MAP) Pulse Ox O2 Delivery O2 Flow Rate FiO2 06/21/21 21:16 98.6 88 18 160/73 (128) 97 Room Air 98.6 EKG: EKG: [] Radiology/Procedures: Impression: [facility] [address] [place] [address] IMAGING REPORT Signed PATIENT: TOMAS MONTENEGRO ACCOUNT: [id number] : 1955 LOCATION: ER AGE: 65 SEX: F EXAM STATUS: REG ER ORD. PHYSICIAN: JIA SANDERS MD REASON: pain in distal ulna, ulnar portion of wrist and 4th/5th metacarpal PROCEDURE: WRIST 3V RIGHT EXAMINATION: Right wrist and right hand radiograph. VIEWS: 3 views of the right wrist and 3 views of the right hand COMPARISON: None INDICATION:65 years, Female, pain in distal ulna and fourth/fifth metacarpals. FINDINGS: Right wrist: No acute fracture, dislocation or subluxation. No bone erosion or periosteal reaction. No soft tissue swelling. Right hand: No acute fracture, dislocation or subluxation. Moderate to severe osteoarthritis of the first carpometacarpal joint. No bone erosion or periosteal reaction. No soft tissue swelling. IMPRESSION: 1. No acute osseous process. 2. Moderate to severe osteoarthritis of the first carpometacarpal joint. Electronically signed by: Nhi Hou MD (06/21/2021 10:05 PM) [facility] DICTATED and SIGNED BY: NHI HOU MD DATE: 06/21/21 [id number] 0 Course & Med Decision Making: Course & Med Decision Making Pertinent Labs and Imaging studies reviewed. (See chart for details) Patient 65-year-old female who presents with right wrist and hand pain after dropping a heavy item on it yesterday. She is neurologically intact and vascularly intact on exam. Has some mild tenderness over the distal ulna, ulnar carpal bones, and proximal fourth/fifth metacarpals. No appreciable deformity. We will obtain x-ray of the hand and wrist for further evaluation. Ofe Disclaimer: Ofe Disclaimer: This electronic medical record was generated, in whole or in part, using a voice recognition dictation system. Departure Departure Impression: Primary Impression: Right wrist pain Disposition: 01 HOME / SELF CARE / HOMELESS Condition: STABLE Referrals: TERRI ALBA MD (PCP) if needed for ongoing pain Additional Instructions: There is no evidence of fracture or bony injury on your x-rays. For pain tylenol and ibuprofen are best used on a schedule. Please alternate between the two. -Tylenol 1000 mg every 6 hours (do not exceed 4000 mg in one day) -Ibuprofen 400 mg every 6 hours. Take with food. Do not take for more than 1 week. JIA SANDERS MD Jun 21, 2021 21:33
--- NOTE | 2021-06-21 22:07 | RAD ---
EXAMINATION: Right wrist and right hand radiograph. VIEWS: 3 views of the right wrist and 3 views of the right hand COMPARISON: None INDICATION:65 years, Female, pain in distal ulna and fourth/fifth metacarpals. FINDINGS: Right wrist: No acute fracture, dislocation or subluxation. No bone erosion or periosteal reaction. N o soft tissue swelling. Right hand: No acute fracture, dislocation or subluxation. Moderate to severe osteoarthritis of the f irst carpometacarpal joint. No bone erosion or periosteal reaction. No soft tissue swelling. IMPRESSION: 1. No acute osseous process. 2. Moderate to severe osteoarthritis of the first carpometacarpal joint. Electronically signed by: Dominique Hou MD (06/21/2021 10:05 PM) BRETT
[2021-06-21 23:00] VITALS: BP 147/83
== END 2021-06-21 23:00 | disposition home or self-care (01) ==
LOC: ER 20:55
DX: M25.531 Pain in right wrist (principal); M79.641 Pain in right hand; G89.11 Acute pain due to trauma; E78.00 Pure hypercholesterolemia, unspecified; I10 Essential (primary) hypertension; E03.9 Hypothyroidism, unspecified; G89.29 Other chronic pain; Z88.2 Allergy status to sulfonamides; Z91.030 Bee allergy status; W22.8XXA Striking against or struck by other objects, initial encounter; Y93.89 Activity, other specified; Y92.89 Other specified places as the place of occurrence of the external cause; Y99.8 Other external cause status
CPT/HCPCS: 73110; 73130; 99284

== ENCOUNTER → 2021-08-04 | Outpatient (CLI) | payer MEDICARE, OTHER ==
--- NOTE | 2021-08-04 16:46 | KCIC ---
Examination: MRI of the right wrist without contrast HISTORY: History of right wrist pain COMPARISON: None available Technique: Multiplanar, multisequence MR imaging of the right wrist were performed without contrast. FINDINGS: The alignment of the carpal bones grossly appears unremarkable. Severe joint space loss identified in the first carpometacarpal joint likely degenerative changes with moderate size osteophyte formation. The scapholunate, lunate triquetral ligament is intact. There is increased T2 signal identified in t he peripheral attachment of the triangular fibrocartilage to the ulna styloid with increased T2 signa l and low T1 signal identified in the ulnar styloid likely nondisplaced fracture. The flexor tendons grossly appears intact. Minimal fluid identified in the extensor carpi ulnaris ten don likely mild tenosynovitis. IMPRESSION: 1. Increased T2 signal identified in the ulna styloid with increased T2 signal and low T1 signal lissy ntified in the ulnar styloid likely nondisplaced fracture. 2. Severe degenerative changes first carpometacarpal joint. 3. Minimal fluid identified in the extensor carpi ulnaris tendon likely mild tenosynovitis. Electronically signed by: Chuy Maynard MD (08/04/2021 4:44 PM) [id number]
== END ==
LOC: KCIC MRI 15:22
PROVIDERS: ATTEND Physician Assistant
DX: M25.531 Pain in right wrist (principal)
CPT/HCPCS: 73221

== ENCOUNTER 2021-09-17 18:19 | Emergency (ER) | payer MEDICARE, OTHER ==
[~2021-09-17] VITALS: Ht 162.6 cm; Wt 74.1 kg
[~2021-09-17 18:19] MED LIST changes: +CYCL10TA19 PO; -CYCL10TA2 PO
[2021-09-17 18:56] VITALS: BP 170/95
--- NOTE | 2021-09-17 19:09 | PHYS DOC ---
Past Medical History Past Medical History: Depression, High Cholesterol, Hypertension, Hypothyroid Additional Past Medical Histor: Chronic Back Pain (POLLY WOOD) Past Surgical History: Cholecystectomy, Tonsillectomy, Tubal ligation Additional Past Surgical Histo: BREAST BIOPSY X2, RIGHT ROTATOR CUFF REPAIR, BACK SURGERY (POLLY WOOD) Smoking Status: Never Smoker Alcohol Use: Rarely Drug Use: None (POLLY WOOD) General Adult EDM: Chief Complaint: RIB PAIN HPI: HPI: Patient is a 66 year old female who presents with left-sided chest wall pain. Patient rates her pain 9/10 nonradiating to the left anterior lower chest wall. Patient reports she had a mechanical fall onto the top of a headboard that she was painting 2 days ago. She was reaching for headphones, when she lost her footing and fell onto the headboard. Patient states her pain has been worse since onset and she finds it difficult to take a deep breath. She has no other complaints at this time. (POLLY WOOD) Review of Systems: Review of Systems: ROS negative except as mentioned in HPI. (POLLY WOOD) Heart Score: C/O Chest Pain: N/A (POLLY WOOD) Allergies: Allergies: Allergies Coded Allergies Type Severity Reaction Last Updated Verified venom-wasp protein Allergy Severe ANT VENOM 09/12/18 Yes Sulfa (Sulfonamide Antibiotics) Allergy Intermediate Itching 06/08/14 No venom-honey bee Allergy Intermediate SWELLING 06/08/14 Yes (POLLY WOOD) Physical Exam: PE: Constitutional: Well developed, well nourished, patient appears uncomfortable and holds her left arm under her left breast near the area of pain, non-toxic appearance. Cardiovascular: Heart rate regular rhythm, no murmur. Lungs & Thorax: No crepitus. Reproducible tenderness over the anterior left lower chest. Breath sounds difficult to evaluate secondary to patient's shallow breathing and vocalization secondary to pain. No obvious wheezes, rales or rhonchi. Abdomen: Bowel sounds normal, soft, no tenderness, no masses, no pulsatile masses. Skin: Warm, dry, no erythema, no rash no abrasion, no laceration. Back: No obvious deformity, no midline tenderness, no paraspinal tenderness. (POLLY WOOD) Current Patient Data: Vital Signs: Vital Signs Date Time Temp Pulse Resp B/P (MAP) Pulse Ox O2 Delivery O2 Flow Rate FiO2 09/17/21 18:56 99.0 77 16 170/95 (120) 98 Room Air 99.0 (POLLY WOOD) Radiology/Procedures: Radiology/Procedures: Plain films evaluated in the emergency department by Dr. Chambers. No evidence of fracture or other acute pathology. PROCEDURE: RIBS LEFT AND PA CHEST Exam:Left ribs with PA chest Date: 09/17/2021 7:11 PM Comparison: No prior Indication: Reason: Left rib contusion, pain / Spl. Instructions: / History: Findings: The heart is not enlarged. Mediastinal and hilar contours are normal. No focal parenchymal airspace opacity. No pleural effusion or pneumothorax. AP, Oblique and Spot images of left ribs are negative for acute displaced rib fracture. Negative focal pleural elevation. Symmetrical intercostal spacing. Cholecystectomy clips noted. Nonpathologically gaseous distended loops of small and large bowel in the visualized portions of the abdomen. It is of note that an acute non-displaced rib fracture can be in-apparent on initial post-trauma imaging. IMPRESSION: 1. No evidence of acute displaced rib fracture. Electronically signed by: Amador Parham DO (09/17/2021 8:57 PM) [facility] (POLLY WOOD) Course & Med Decision Making: Course & Med Decision Making Pertinent Labs and Imaging studies reviewed. (See chart for details) Patient likely has chest wall contusion. Patient is requesting x-rays to evalu ate for fractures. She is aware that rib fractures are easily missed on chest x-rays. She also states that she has broken multiple bones in the past that were not caught on initial x-rays. She still is requesting plain films. Discussed incentive spirometry with patient, and she states she is familiar. She used to have an incentive spirometer, but she is unsure where it is. Emerson smyth states she "normally does not take deep breaths anyway." I advised her to follow training instructions for incentive spirometry to avoid development of atelectasis and/or pneumonia. Patient should return if her symptoms worsen or she develops new symptoms, including fever, cough or cough with sputum. Patient understands and is agreeable to discharge plan. (POLLY WOOD) Course & Med Decision Making Patients Care and treatment plan provided by ER Nurse Practitioner. I was available for consult. Patient's chart reviewed. (FELIPE CHAMBERS I DO) Ofe Disclaimer: Ofe Disclaimer: This electronic medical record was generated, in whole or in part, using a voice recognition dictation system. (POLLY WOOD) Departure Departure Impression: Primary Impression: Contusion of left front wall of thorax, initial encounter Disposition: HOME / SELF CARE / HOMELESS Condition: STABLE Referrals: TERRI ALBA MD (PCP) Patient Instructions: Chest Wall Pain, [id number], Incentive Spirometer Additional Instructions: EMERGENCY DEPARTMENT GENERAL DISCHARGE INSTRUCTIONS Thank you for coming to [facility] Emergency Department (ED) today and trusting us with you care. We trust that you had a positive experience in our Emergency Department. If you wish to speak to the department management, you may call the Director at [phone]. YOUR FOLLOW UP INSTRUCTIONS ARE FOLLOWS: 1. Do you have a private Doctor? If you do not have a private doctor, please ask for a resource list of physicians or clinics that may be able to assist you with follow up care. 2. The emergency physician has interpreted your x-rays. The X-Ray specialist will also review them. If there is a change in the findings, you will be notified in 48 hours when at all possible. 3. A lab test or culture has been done, your results will be reviewed and you will be notified if you need a change in treatment. ADDITIONAL INSTRUCTIONS AND INFORMATION: 1. Your care today has been supervised by a physician who is specially trained in emergency care. Many problems require more than one evaluation for a complete diagnosis and treatment. We recommend that you schedule your follow up appointment as recommended to ensure complete treatment of you illness or injury. If you are unable to obtain follow up care and continue to have a problem, or if your condition worsens, we recommend that you return to the ED. 2. We are not able to safely determine your condition over the phone nor are we able to give sound medical advice over the phone. For these safety reasons, if you call for medical advice we will ask you to come to the ED for further evaluation. 3. If you have any questions regarding these discharge instructions please call the ED at [phone]. SAFETY INFORMATION: In the interest of safety, wellness, and injury prevention; we encourage you to wear your sealbelt, if you smoke; quite smoking, and we encourage family to use a protective helmet for bicycling and other sporting events that present an increased risk for head injury. IF YOUR SYMPTOMS WORSEN OR NEW SYMPTOMS DEVELOP, OR YOU HAVE CONCERNS ABOUT YOUR CONDITION; OR IF YOUR CONDITION WORSENS WHILE YOU ARE WAITING FOR YOUR FOLLOW UP APPOINTMENT; EITHER CONTACT YOUR PRIMARY CARE DOCTOR, THE PHYSICIAN WHOSE NAME AND NUMBER YOU WERE GIVEN, OR RETURN TO THE ED IMMEDIATELY. Scripts Lidocaine (Lidocaine PATCH ) 1 Each Adh..patch 1 EACH TP DAILY for FOR LOCAL PAIN, #10 PATCH REMOVE AFTER 12 HOURS. Do not reapply for another 12 hours. Prov: POLLY WOOD 09/17/21 POLLY WOOD Sep 17, 2021 19:09 FELIPE CHAMBERS I DO Sep 19, 2021 01:32
[2021-09-17] MEDS ORDERED: KETOROLAC 60 MG/2 ML VIAL. IM ONE (19:30)
[2021-09-17] MEDS ORDERED: LIDO700A21 TP (20:41)
[2021-09-17] MEDS ORDERED: LIDOCAINE (700MG/PATCH) PATCH. TD ONE (21:00)
--- NOTE | 2021-09-17 21:00 | RAD ---
Exam:Left ribs with PA chest Date: 09/17/2021 7:11 PM Comparison: No prior Indication: Reason: Left rib contusion, pain / Spl. Instructions: / History: Findings: The heart is not enlarged. Mediastinal and hilar contours are normal. No focal parenchymal airspace o pacity. No pleural effusion or pneumothorax. AP, Oblique and Spot images of left ribs are negative for acute displaced rib fracture. Negative foc al pleural elevation. Symmetrical intercostal spacing. Cholecystectomy clips noted. Nonpathologically gaseous distended loops of small and large bowel in th e visualized portions of the abdomen. It is of note that an acute non-displaced rib fracture can be in-apparent on initial post-trauma imag ing. IMPRESSION: 1. No evidence of acute displaced rib fracture. Electronically signed by: Amador Parham DO (09/17/2021 8:57 PM) [facility]
== END 2021-09-17 20:55 | disposition home or self-care (01) ==
LOC: ER 18:19
DX: S20.212A Contusion of left front wall of thorax, initial encounter (principal); I10 Essential (primary) hypertension; E78.00 Pure hypercholesterolemia, unspecified; E03.9 Hypothyroidism, unspecified; G89.29 Other chronic pain; Z88.2 Allergy status to sulfonamides; Z88.8 Allergy status to other drugs, medicaments and biological substances; W18.39XA Other fall on same level, initial encounter; Y93.89 Activity, other specified; Y92.89 Other specified places as the place of occurrence of the external cause; Y99.8 Other external cause status
CPT/HCPCS: 71101; 96372; 99284; J1885

== ENCOUNTER → 2021-09-22 | Outpatient (CLI) | payer MEDICARE, OTHER ==
[2021-09-17 18:56] VITALS: BP 170/95
[~2021-09-22] MED LIST changes: +LIDO700A21 TP
--- NOTE | 2021-09-22 14:59 | RAD ---
Complete abdominal ultrasound 09/22/2021 2:06 PM Clinical History: Reason: ELEVATED LIVER TRANSAMINASE LEVEL / Spl. Instructions: / History: Technique: Ultrasound examination of the abdomen was performed, and multiple static images were subm itted for review. Comparison: None Findings: The pancreas is not visualized. Visualized portions of the aorta and IVC are unremarkable. The liver is normal in size measuring 15 cm longitudinally. The liver demonstrates diffuse increase i n echogenicity suggestive of hepatic steatosis. Portal venous flow is in the normal direction. No foc al hepatic lesions are identified. The common bile duct measures 5 mm in diameter. The right kidney i s normal in appearance measuring 11 cm in length. Spleen is normal in size measuring 9 cm longitudina lly. The left kidney is unremarkable in appearance measuring 11 cm in length. The gallbladder is surg ically absent. IMPRESSION: Hepatic steatosis. Otherwise unremarkable sonographic appearance of the abdomen Electronically signed by: Nathanael Kelly MD (09/22/2021 2:56 PM) [id number]
== END ==
LOC: US 14:06
PROVIDERS: ATTEND Family Medicine
DX: K76.0 Fatty (change of) liver, not elsewhere classified (principal); R74.01 Elevation of levels of liver transaminase levels; Z90.49 Acquired absence of other specified parts of digestive tract
CPT/HCPCS: 76700

== ENCOUNTER 2021-11-23 00:37 | Emergency (ER) | payer MEDICARE, OTHER ==
[~2021-11-23] VITALS: Ht 162.6 cm; Wt 70.0 kg
[2021-11-23 01:05] VITALS: BP 151/96
--- NOTE | 2021-11-23 02:33 | PHYS DOC ---
Past Medical History Past Medical History: Depression, High Cholesterol, Hypertension, Hypothyroid Additional Past Medical Histor: Chronic Back Pain Past Surgical History: Cholecystectomy, Tonsillectomy, Tubal ligation Additional Past Surgical Histo: BREAST BIOPSY X2, RIGHT ROTATOR CUFF REPAIR, BACK SURGERY Smoking Status: Never Smoker Alcohol Use: Occasionally Drug Use: None General Adult EDM: Chief Complaint: HAND PROBLEM HPI: HPI: Patient is a 66 year old female who presents with left hand pain. She slammed her fingers in her car door accidentally when a wind raisa blew her car door shut unexpectedly. She complains of pain in her second and third fingers. Pain is isolated to the PIP and more distally. Review of Systems: Review of Systems: Constitutional: Denies fever or chills. [] Eyes: Denies change in visual acuity. [] HENT: Denies nasal congestion or sore throat. [] Respiratory: Denies cough or shortness of breath. [] Cardiovascular: Denies chest pain or edema. [] GI: Denies abdominal pain, nausea, vomiting, bloody stools or diarrhea. [] : Denies dysuria. [] Musculoskeletal: Reports pain to fingers on left hand Heart Score: C/O Chest Pain: N/A Allergies: Allergies: Allergies Coded Allergies Type Severity Reaction Last Updated Verified venom-wasp protein Allergy Severe ANT VENOM 09/12/18 Yes Sulfa (Sulfonamide Antibiotics) Allergy Intermediate Itching 06/08/14 No venom-honey bee Allergy Intermediate SWELLING 06/08/14 Yes Physical Exam: PE: Constitutional: Well developed, well nourished, no acute distress, non-toxic appearance. [] HENT: Normocephalic, atraumatic Neck: Normal range of motion, no tenderness, supple, no stridor. [] Cardiovascular: heart rate normal Lungs & Thorax: normal work of breathing Skin: Warm, dry, no erythema, no rash. [] Back: No tenderness, no CVA tenderness. [] Extremities: Left hand with tenderness over the middle and distal phalanges of the 2nd and 3rd fingers. Also tenderness and pain with PROM/AROM of PIP and DIP of same hand. Able to flex and extend. Distal cap refill and sensation intact. Current Patient Data: Vital Signs: Vital Signs Date Time Temp Pulse Resp B/P (MAP) Pulse Ox O2 Delivery O2 Flow Rate FiO2 2/2/22 01:05 97.2 95 16 151/96 (114) 95 Room Air 97.2 EKG: EKG: [] Radiology/Procedures: Radiology/Procedures: [] Course & Med Decision Making: Course & Med Decision Making Pertinent Labs and Imaging studies reviewed. (See chart for details) Patient is 66-year-old female who presents with pain to her left second and third fingers after accidentally slamming them in a car door. Xray was discussed verbally over the phone with the radiologist no fracture was apparent. Patient will be discharged with conservative management and instructions to follow-up with her PCP if pains persist. Dragon Disclaimer: Dragon Disclaimer: This electronic medical record was generated, in whole or in part, using a voice recognition dictation system. Departure Departure Impression: Primary Impression: Finger pain Disposition: HOME / SELF CARE / HOMELESS Condition: STABLE Referrals: JUANA HERNANDEZ MD (PCP) Additional Instructions: Your x-rays did not show any fractures. There is a very small chance that we could have missed a small fracture that may be apparent later on. If your divine persist for more than a week please follow- up with your PCP. For pain tylenol and ibuprofen are best used on a schedule. Please alternate between the two. -Tylenol 1000 mg every 6 hours (do not exceed 4000 mg in one day) -Ibuprofen 400 mg every 6 hours. Take with food. Do not take for more than 1 week. JIA SANDERS MD Nov 23, 2021 02:33
--- NOTE | 2021-11-23 04:57 | RAD ---
EXAM: Left fingers 3 views. HISTORY: Second and third digit pain after injury. COMPARISON: None. FINDINGS: No fractures are identified. There is soft tissue swelling about the second and third proxi mal interphalangeal. Osteoarthritis is moderate throughout the proximal and distal interphalangeal anirudh ints and mild at the metacarpophalangeal joints. First carpometacarpal osteoarthritis is partially vi sualized but appears moderate to severe. Alignment is maintained. IMPRESSION: 1. No fracture. Osteoarthritis as above. Electronically signed by: Salinas Shea MD (11/23/2021 4:54 AM) [facility]
== END 2021-11-23 04:59 | disposition home or self-care (01) ==
LOC: ER 00:37
DX: M79.645 Pain in left finger(s) (principal); E78.00 Pure hypercholesterolemia, unspecified; I10 Essential (primary) hypertension; E03.9 Hypothyroidism, unspecified; G89.29 Other chronic pain; Z88.2 Allergy status to sulfonamides; Z91.030 Bee allergy status
CPT/HCPCS: 73140; 99283